=== PATIENT | female | born 1960 | race Caucasian/White ===

== ENCOUNTER → 2017-08-14 16:05 | Outpatient (REF) | payer OTHER, SELFPAY ==
[2017-08-14 21:45] LABS: Amphetamine/Metha Screen,Urine Negative ng/mL (<1000); Barbiturates Screen,Urine Negative ng/mL (<200); Benzodiazepines Screen,Urine Negative ng/mL (200); Cannabinoid Screen,Urine Negative ng/mL (<50); Cocaine Screen,Urine Negative ng/g (<300); Methadone Screen,Urine Positive ng/mL (<300); Opiate Screen,Urine Negative ng/mL (<300); Phencyclidine Screen,Urine Negative ng/mL (<25)
== END ==
LOC: LAB 16:05
PROVIDERS: Visit Provider Nurse Practitioner Family
DX: Z79.899 Other long term (current) drug therapy (principal)
CPT/HCPCS: 80305

== ENCOUNTER → 2017-08-27 14:57 | Outpatient (REF) | payer OTHER, SELFPAY ==
[2017-08-27 19:06] LABS: Basophils % 0.5 % (0.1-2.0); Eosinophils # 0.2 K/mm3 (0.0-0.4); Eosinophils % 2.2 % (0.1-12.0); Hematocrit 35.5 % (37.0-47.0); Hemoglobin 11.8 g/dL (12.2-16.2); Lymphocytes # 2.3 K/mm3 (0.7-4.5); Lymphocytes % 34.9 K/mm3 (10-50); Mean Corpuscular HGB Conc 33.3 g/dL (31.8-35.4); Mean Corpuscular Hemoglobin 29.5 pg (27.0-31.2); Mean Corpuscular Volume 88.6 fl (81-99); Mean Platelet Volume 9.2 fl (7.4-10.4); Monocytes # 0.4 K/mm3 (0.1-1.0); Monocytes % 6.1 % (1.7-9.3); Neutrophils # 3.8 K/mm3 (1.8-7.8); Neutrophils % 56.3 % (37.0-80.0); Platelet Count 204 K/mm3 (142-424); Red Blood Count 4.01 M/mm3 (4.20-5.40); Red Cell Distribution Width 13.6 % (11.5-17.5); White Blood Count 6.7 K/mm3 (4.8-10.8)
[2017-08-27 19:19] LABS: Alanine Aminotransferase 22 U/L (12-78); Albumin Level 3.9 gm/dL (3.4-5.0); Albumin/Globulin Ratio 1.1 (1.1-1.8); Alkaline Phosphatase 109 U/L (46-116); Anion Gap 11.4 mEq/L (5-15); Aspartate Amino Transferase 18 U/L (15-37); Bilirubin,Total 0.2 mg/dL (0.2-1.0); Blood Urea Nitrogen 14 mg/dL (7-18); Calcium 9.1 mg/dL (8.5-10.1); Carbon Dioxide 30 mmol/L (21.0-32.0); Chloride 101 mmol/L (98-107); Creatinine,Serum 0.77 mg/dL (0.55-1.02); Estimated Glomerular Filt Rate 77 ml/min (>60); GFR (African American) 93 ML/MIN (>60); Globulin 3.6 gm/dl (1.3-3.2); Glucose 95 mg/dL (74-106); Potassium 4.4 mmoL/L (3.5-5.1); Sodium 138 mmol/L (136-145); Total Protein,Serum 7.5 gm/dL (6.4-8.2)
== END ==
LOC: LAB 14:57
PROVIDERS: Visit Provider Nurse Practitioner Family
DX: Z01.818 Encounter for other preprocedural examination (principal)
CPT/HCPCS: 80053; 85025

== ENCOUNTER → 2018-01-04 10:19 | Outpatient (CLI) | payer OTHER, SELFPAY ==
[2018-01-04 10:45] VITALS: PULSE 72
== END ==
PROVIDERS: PCP Emergency Medicine; Visit Provider Emergency Medicine
DX: R06.02 Shortness of breath (principal)
CPT/HCPCS: 94060; 94640

== ENCOUNTER 2018-05-20 15:52 | Observation (INO) ==
--- NOTE | 2018-05-20 16:23 | Emergency Department Note ---
ED Disposition Condition on Discharge: Fair - Critical Care Critical Care Time: No <Cecy Jones - Last Filed: 05/20/18 19:28> <Luis Chairez - Last Filed: 05/20/18 21:29> Clinical Impression: Chronic back pain, Anemia, Chronic pain syndrome, Opiate withdrawal, Methadone dependence Disposition: Home, Self-Care Attestation: On 05/20/18, the high probability of a clinically significant, sudden or life threatening deterioration of the following system(s) required my full and direct attention, intervention and personal management. The time I documented below is in addition to time spent performing reported procedures but includes the following listed in this critical care notation. Medical Decision Making - Medical Records Medical records reviewed: Yes: I reviewed the patient's medical records. - Alfred Inquiry Pt receiving controlled substance: No Alfred was queried for this patient: No - Lab Data Result diagrams: 05/20/18 16:30 05/20/18 16:30 - ECG Data Tracing #1 ECG initial impression date: 05/20/18 ECG initial impression time: 16:05 <Cecy Jones - Last Filed: 05/20/18 19:28> - Lab Data Result diagrams: 05/20/18 16:30 05/20/18 16:30 <Luis Chairez - Last Filed: 05/20/18 21:29> Vital Signs: 05/20/18 16:29 05/20/18 19:17 05/20/18 19:39 Temperature 98.8 F Temperature Source Oral Pulse Rate Pulse Rate [Left Radial] 66 58 L 61 Respiratory Rate 18 11 L 16 Blood Pressure Blood Pressure [Right Arm] 136/90 79/41 L 89/51 L Blood Pressure Mean [Right Arm] 105 53 63 Blood Pressure Source [Right Arm] Automatic Cuff Blood Pressure Position [Right Arm] Sitting 02 Sat by Pulse Oximetry 98 98 100 Oxygen Delivery Method Room Air Room Air Room Air 05/20/18 20:12 05/20/18 20:42 05/20/18 20:54 Temperature 98.5 F Temperature Source Oral Pulse Rate 83 Pulse Rate [Left Radial] 95 H 89 Respiratory Rate 17 20 17 Blood Pressure 145/98 H Blood Pressure [Right Arm] 155/99 H 135/98 H Blood Pressure Mean [Right Arm] 117 110 Blood Pressure Source [Right Arm] Automatic Cuff Automatic Cuff Blood Pressure Position [Right Arm] Standing Sitting 02 Sat by Pulse Oximetry 99 97 Oxygen Delivery Method Room Air Room Air Room Air 05/20/18 21:19 Temperature Temperature Source Pulse Rate Pulse Rate [Left Radial] 81 Respiratory Rate 15 Blood Pressure Blood Pressure [Right Arm] 126/79 Blood Pressure Mean [Right Arm] 94 Blood Pressure Source [Right Arm] Automatic Cuff Blood Pressure Position [Right Arm] Sitting 02 Sat by Pulse Oximetry 99 Oxygen Delivery Method Room Air - Lab Data Lab Results 05/20/18 16:30: WBC 6.8, RBC 3.82 L, Hgb 11.1 L, Hct 34.9 L, MCV 91.1, MCH 29.0, MCHC 31.8, RDW 14.5, Plt Count 265, MPV 7.0 L, Neut % (Auto) 56.7, Lymph % (Auto) 33.4, [place] % (Auto) 6.8, Eos % (Auto) 2.6, Baso % (Auto) 0.6, Neut # (Auto) 3.8, Lymph # (Auto) 2.3, [place] # (Auto) 0.5, Eos # (Auto) 0.2, Baso # (Auto) 0.0 05/20/18 16:30: Sodium 139, Potassium 4.0, Chloride 101, Carbon Dioxide 30, Anion Gap 12.0, BUN 9, Creatinine 0.95, Estimated Creat Clear 74, Estimated GFR 60, Est GFR ( Amer) 73, Glucose 106, Calcium 8.8, Total Bilirubin 0.3, AST 17, ALT 19, Alkaline Phosphatase 105, Total Creatine Kinase 86, CK-MB (CK-2) 2.5, CK-MB (CK-2) Rel Index 2.9, Troponin I < 0.02, Total Protein 7.4, Albumin 3.4, Globulin 4.0 H, Albumin/Globulin Ratio 0.9 L, Lipase 107, Plasma/Serum Alcohol 0 05/20/18 18:30: Urine Color Yellow, Urine Appearance Clear, Urine pH 6.5, Ur Specific [place] 1.020, Urine Protein Negative, Urine Glucose (UA) Negative, Urine Ketones Negative, Urine Blood Negative, Urine Nitrate Negative, Urine Bilirubin Negative, Urine Urobilinogen 0.2, Ur Leukocyte Esterase Negative, Urine RBC None, Urine WBC Occasional, Ur Squamous Epith Cells 5-10, Urine Bacteria Trace 05/20/18 18:30: Urine Opiates Screen Negative, Urine Methadone Screen Positive H , Ur Barbituates Screen Negative, Ur Phencyclidine Scrn Negative, Ur Amphetamines Screen Negative, U Benzodiazepines Scrn Negative, Urine Cocaine S creen Negative, U Marijuana (THC) Screen Negative Orders (Tests/Meds): ED MEDICATIONS Generic Name Dose Route Start Last Admin Trade Name Freq PRN Reason Stop Dose Admin Albuterol Sulfate puffs 05/20/18 20:13 Proventil-Hfa 90mcg/Puff Inhaler IH 06/19/18 20:12 Q8H PRN shortness of breath Atenolol 25 mg 05/20/18 20:13 Tenormin 25mg Tablet PO 06/19/18 20:12 QAM [facility] Citalopram Hydrobromide 20 mg 05/21/18 09:00 Celexa 20mg Tablet PO 06/20/18 08:59 DAILY [facility] Clonidine HCl 0.2 mg 05/20/18 21:00 Clonidine 0.2mg Tablet PO 06/19/18 20:59 TID [facility] Hydroxyzine Pamoate 25 mg 05/20/18 20:13 Vistaril 25mg Capsule PO 06/19/18 20:12 DAILY PRN itching Lorazepam 0.5 mg 05/20/18 20:13 Ativan 0.5mg Tablet PO 06/19/18 20:12 BID PRN anxiety Miscellaneous 1 unit 05/20/18 20:13 Aerochamber/Optihaler MC 05/20/18 20:14 ONCE ONE Morphine Sulfate 2 mg 05/20/18 20:13 Morphine 2mg/Ml Syringe IV 06/19/18 20:12 Q2HP PRN Severe Pain Non-Formulary Medication 5 mg 05/21/18 09:00 Desloratadine [Desloratadine] PO 06/20/18 08:59 DAILY [facility] Non-Formulary Medication 1 inh 05/20/18 20:13 Fluticasone/Vilanterol [Breo Ellipta 100-25 Mcg Inh] INHALATION 06/19/18 20:12 Q24H JADIEL Non-Formulary Medication 20 mg 05/21/18 09:00 Omeprazole [Omeprazole 20mg Capsule] PO 06/20/18 08:59 DAILY J[facility] Promethazine HCl 12.5 mg 05/20/18 20:13 Phenergan 25mg/Ml 1ml Vial IV 06/19/18 20:12 Q6HP PRN Nausea And Vomiting Sodium Chloride 25 ml 05/20/18 20:13 Sod Chlor 0.9% 25ml Bag IV 05/20/18 20:14 ONCE ONE Discontinued Medications Generic Name Dose Route Start Last Admin Trade Name Freq PRN Reason Stop Dose Admin Sodium Chloride 1,000 mls @ 999 mls/hr 05/20/18 19:30 05/20/18 19:19 Sod Chlor 0.9% 1000ml Bag IV 05/20/18 20:30 999 mls/hr .Q1H1M JADIEL Administration Lorazepam 1 mg 05/20/18 20:46 05/20/18 20:55 Ativan 2mg/Ml Vial IM 05/20/18 20:47 1 mg ONCE ONE Administration Morphine Sulfate 2 mg 05/20/18 19:30 05/20/18 19:36 Morphine 2mg/Ml Syringe IV 05/20/18 19:31 2 mg ONCE ONE Administration Morphine Sulfate 2 mg 05/20/18 20:10 05/20/18 20:12 Morphine 2mg/Ml Syringe IV 05/20/18 20:11 2 mg ONCE ONE Administration Naloxone HCl 2 mg 05/20/18 19:17 05/20/18 19:19 Narcan 2mg/2ml Syringe IV 05/20/18 19:18 2 mg ONCE ONE Administration Ondansetron HCl 4 mg 05/20/18 20:10 05/20/18 20:12 Zofran 4mg/2ml Vial IV 05/20/18 20:11 4 mg ONCE ONE Administration Promethazine HCl 12.5 mg 05/20/18 20:10 05/20/18 20:12 Phenergan 25mg/Ml 1ml Vial IV 05/20/18 20:11 12.5 mg ONCE ONE Administration Sodium Chloride 25 ml 05/20/18 20:10 05/20/18 20:11 Sod Chlor 0.9% 25ml Bag IV 05/20/18 20:11 25 ml ONCE ONE Administration ORDERS Category Date Time Status Basic Metabolic Panel AMLAB Lab 05/21/18 06:00 Ordered Complete Blood Count Auto Diff AMLAB Lab 05/21/18 06:00 Ordered Magnesium AMLAB Lab 05/21/18 06:00 Ordered Troponin I Q6H Lab 05/20/18 22:45 Ordered Troponin I Q6H Lab 05/21/18 04:45 Ordered - ECG Data Tracing #1 Normal sinus rhythm 63/min baseline artifact no acute findings. (Cecy Jones) Medical Decision Narrative: Patient underwent negative labs except for chronic anemia. Cardiac enzymes are negative lipase was within normal limits. Her urine drug screen was positive for methadone but she displayed symptoms of narcotic overdose that is when she was given Narcan by nursing staff to protect her breathing but shortly after she developed opiate withdrawal symptoms in the form of a runny nose, tachycardia irritability and worse back pain. I spoke with Dr. 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 Arizmendi agreed to admit her for opiate withdrawal treatment. Prior to admission to the floor the patient received morphine with improvement of her symptoms. (Cecy Jones) Back Pain HPI - General Mode of Arrival: Ambulatory Source of Information: Patient - History of Present Illness MD Complaint: back pain Onset (ago): week(s) Duration: constant Similar Symptoms Previously: Yes Location: lumbar spine Severity: moderate Quality: dull Radiation: abdomen Relieving factors: sitting upright Exacerbating factors: walking Context: while lifting Associated symptoms: denies other symptoms Pertinent Issues R/T Back Pain: Back Surgery <Cecy Jones - Last Filed: 05/20/18 19:28> <Luis Chairez - Last Filed: 05/20/18 21:29> - General Stated Complaint: To be ck out Time Seen by Provider: 05/20/18 16:20 - History of Present Illness HPI Narrative: 57 years old white female with history of back surgeries and chronic back pain. She was seen by her primary care physician 4 days ago and she was advised to go to the ER so she presented to the ED today with her bag ready for admission. She is complaining of bilateral flank pain that is worse with walking and lifting. He denies having chest pain shortness of breath palpitation hemoptysis hematemesis coffee-ground emesis melanotic stool or bleeding per rectum. Denies having radicular pain to the lower extremity there is no weakness there is no numbness there is no loss of urine or bowel control. (Cecy Jones) - Related Data Home Medications Medication Instructions Recorded Confirmed baclofen 20 mg tablet 20 mg PO Q8H 08/13/17 05/20/18 Amitriptyline HCl [Elavil 50mg 50 mg PO QHS 05/20/18 05/20/18 tablet] Atenolol [Atenolol 25mg Tab] 25 mg PO QAM 05/20/18 05/20/18 Citalopram Hydrobromide 20 mg PO DAILY 05/20/18 05/20/18 [Citalopram HBr] Desloratadine 5 mg PO DAILY 05/20/18 05/20/18 Fluticasone/Vilanterol [Breo 1 inh INHALATION Q24H 05/20/18 05/20/18 Ellipta] Gabapentin [Gabapentin 400mg Cap] 400 mg PO TID 05/20/18 05/20/18 Omeprazole [Omeprazole 20mg 20 mg PO DAILY 05/20/18 05/20/18 Capsule] cloNIDine HCl [Catapres] 0.2 mg PO TID 05/20/18 05/20/18 Previous Rx's Medication Instructions Recorded albuterol sulfate HFA 90 2 puff INHALATION Q8H PRN #8.5 g 01/25/18 mcg/actuation aerosol inhaler promethazine 25 mg tablet 25 mg PO Q6H PRN #5 tab 02/07/18 hydroxyzine pamoate 25 mg capsule 25 mg PO DAILY PRN #90 cap 05/16/18 lorazepam 0.5 mg tablet 0.5 mg PO BID PRN #30 tab 05/16/18 Allergies Allergy/AdvReac Type Severity Reaction Status Date / Time acetaminophen [From Tylenol] Allergy Mild Verified 05/16/18 15:25 codeine Allergy Mild Verified 05/16/18 15:25 ketorolac [From Toradol] Allergy Mild Verified 05/16/18 15:25 HMH History Medical History: Reports:: Anxiety, Depression, Hypertension Laterality Cases: Right: Total Hip Replacement Other Surgeries: Yes: Tubal Ligation, Other Amputation: No Fractures: No - Social History Smoking Status: Current every day smoker Tobacco Type: cigarettes # Packs/Day (cigarettes): 2 Alcohol Intake: never Substance Use Type: denies use - Psychiatric History Pschychiatric History:: Reports:: Anxiety, Depression Family Hx:: Cancer, Hypertension <Cecy Jones - Last Filed: 05/20/18 19:28> ROS Obtained: Yes All systems reviewed & no additional complaints <Cecy Jones - Last Filed: 05/20/18 19:28> Physical Exam - General General appearance: alert, in no apparent distress - Head Head exam: atraumatic, normocephalic, normal inspection - Eye Eye exam: Present: normal appearance, PERRL, EOMI. Absent: scleral icterus, nystagmus - ENT ENT exam: Present: normal exam, normal oropharynx, mucous membranes moist, TM's normal bilaterally, normal external ear exam - Neck Neck exam: Present: normal inspection, full ROM, trachea midline. Absent: tenderness, meningismus, lymphadenopathy - Chest Chest inspection: Present: normal inspection, symmetric chest wall rise. Absent: tenderness - Respiratory Respiratory exam: Present: normal lung sounds bilaterally. Absent: respiratory distress - Cardiovascular Cardiovascular exam: Present: regular rate, normal rhythm, normal heart sounds. Absent: JVD - Abdominal Exam Abdominal exam: Present: soft, normal bowel sounds. Absent: distention, tende rness, guarding, rebound, rigidity - External exam: Present: normal external exam - Extremities Exam Extremities exam: Present: normal inspection, full ROM, normal capillary refill. Absent: calf tenderness - Back Exam Back exam: Present: normal inspection, CVA tenderness (R), CVA tenderness (L), paraspinal tenderness. Absent: tenderness, vertebral tenderness - Neurological Exam Neurological exam: Present: alert, oriented X3, CN II-XII intact, motor sensory deficit, reflexes normal - Psychiatric Psychiatric exam: Present: normal affect, normal mood - Skin Skin exam: Present: warm, dry, intact, normal color - Lymphatic Lymphatic Findings: no adenopathy <[email or web address] - Last Filed: 05/20/18 19:28>
[2018-05-20 16:36] LABS: Basophils % 0.6 % (0.1-2.0); Eosinophils # 0.2 K/mm3 (0.0-0.4); Eosinophils % 2.6 % (0.1-12.0); Hematocrit 34.9 % (37.0-47.0); Hemoglobin 11.1 g/dL (12.2-16.2); Lymphocytes # 2.3 K/mm3 (0.7-4.5); Lymphocytes % 33.4 % (10-50); Mean Corpuscular HGB Conc 31.8 g/dL (31.8-35.4); Mean Corpuscular Volume 91.1 fl (81-99); Monocytes # 0.5 K/mm3 (0.1-1.0); Monocytes % 6.8 % (1.7-9.3); Neutrophils # 3.8 K/mm3 (1.8-7.8); Neutrophils % 56.7 % (37.0-80.0); Platelet Count 265 K/mm3 (142-424); Red Blood Count 3.82 M/mm3 (4.20-5.40); Red Cell Distribution Width 14.5 % (11.5-17.5); White Blood Count 6.8 K/mm3 (4.8-10.8)
[2018-05-20 17:06] LABS: Alanine Aminotransferase 19 U/L (12-78); Albumin Level 3.4 gm/dL (3.4-5.0); Albumin/Globulin Ratio 0.9 (1.1-1.8); Alkaline Phosphatase 105 U/L (46-116); Aspartate Amino Transferase 17 U/L (15-37); Bilirubin,Total 0.3 mg/dL (0.2-1.0); Blood Urea Nitrogen 9 mg/dL (7-18); Calcium 8.8 mg/dL (8.5-10.1); Carbon Dioxide 30 mmol/L (21.0-32.0); Chloride 101 mmol/L (98-107); Creatine Kinase 86 U/L (26-192); Glucose 106 mg/dL (74-106); Lipase 107 u/L (73-393); Sodium 139 mmol/L (136-145); Total Protein,Serum 7.4 gm/dL (6.4-8.2)
[2018-05-20 17:07] LABS: Ethyl Alcohol 0 mg/dL (0-99)
[2018-05-20 18:35] LABS: Microscopic, Urine URINE MICROSCOPIC (MICROSCOPIC)
[2018-05-20 18:42] LABS: Appearance,Urine CLEAR (Clear); Blood, Urine Negative (Negative); Color,Urine YELLOW (Yellow); Glucose,Urine (UA) Negative (Negative); Ketones,Urine Negative (Negative); Leukocyte Esterase,Urine Negative (Negative); PH,Urine 6.5 (5.0-8.5); Protein,Urine Negative (Negative); Urobilinogen,Urine 0.2 EU/dl (0.2)
[2018-05-20 18:45] LABS: Amphetamine/Metha Screen,Urine Negative ng/mL (<1000); Barbiturates Screen,Urine Negative ng/mL (<200); Benzodiazepines Screen,Urine Negative ng/mL (<200); Cannabinoid Screen,Urine Negative ng/mL (<50); Cocaine Screen,Urine Negative ng/mL (<300); Methadone Screen,Urine Positive ng/mL (<300); Opiate Screen,Urine Negative ng/mL (<300); Phencyclidine Screen,Urine Negative ng/mL (<25)
[2018-05-20 18:46] LABS: Bilirubin,Urine Negative (Negative)
[2018-05-20 18:58] LABS: WBC,Urine Occasional #/hpf (0-3)
[2018-05-20 18:59] LABS: Bacteria,Urine Trace /lpf
[2018-05-21 05:18] LABS: Calcium 8.6 mg/dL (8.5-10.1)
[2018-05-21 05:45] LABS: Basophils % 0.6 % (0.1-2.0); Eosinophils # 0.1 K/mm3 (0.0-0.4); Eosinophils % 1.7 % (0.1-12.0); Hemoglobin 11.2 g/dL (12.2-16.2); Lymphocytes # 2.2 K/mm3 (0.7-4.5); Lymphocytes % 34.7 % (10-50); Mean Corpuscular HGB Conc 32.1 g/dL (31.8-35.4); Mean Corpuscular Hemoglobin 29.5 pg (27.0-31.2); Mean Corpuscular Volume 92.1 fl (81-99); Mean Platelet Volume 7.3 fl (7.4-10.4); Monocytes # 0.4 K/mm3 (0.1-1.0); Monocytes % 5.9 % (1.7-9.3); Neutrophils # 3.6 K/mm3 (1.8-7.8); Neutrophils % 57.2 % (37.0-80.0); Platelet Count 247 K/mm3 (142-424); Red Blood Count 3.81 M/mm3 (4.20-5.40); Red Cell Distribution Width 14.4 % (11.5-17.5); White Blood Count 6.4 K/mm3 (4.8-10.8)
--- NOTE | 2018-05-21 07:37 | Pharmacy Consult Notes ---
[facility] Pharmacy VTE Monitoring - Patient Demographics Admission date: 05/20/18 Report Date: 05/21/18 Time: 07:37 Allergies/Adverse Reactions: Patient Allergies acetaminophen [From Tylenol] Allergy (Mild, Verified 05/16/18 15:25) codeine Allergy (Mild, Verified 05/16/18 15:25) ketorolac [From Toradol] Allergy (Mild, Verified 05/16/18 15:25) Height: 1.68 m Weight: 72.575 kg Patient Problems: Current Active Problems (This Medical Record has been edited. Action required.) Chronic back pain (Acute) Anemia (Acute) Chronic pain syndrome (Acute) Opiate withdrawal (Acute) Methadone dependence (Acute) - VTE Risk Labs: VTE Related Lab Results Hgb 11.2 g/dL (12.2-16.2) L 05/21/18 04:50 Hct 35.0 % (37.0-47.0) L 05/21/18 04:50 Plt Count 247 K/mm3 (142-424) 05/21/18 04:50 BUN 8 mg/dL (7-18) 05/21/18 04:50 Creatinine 0.84 mg/dL (0.55-1.02) 05/21/18 04:50 Estimated Creat Clear 84 mL/min (50-200) 05/21/18 04:50 Was VTE Risk Assessment Performed: Yes VTE Risk Level: Moderate Risk - Prophylaxis VTE Prophylaxis Ordered?: Yes Types of VTE Prophylaxis: TEDS Knee High Location of Applied Device: Bilateral Lower Extremeties - VTE Diagnosis Confirmed Treatment or plan recommended: Continue Current Treatment
--- NOTE | 2018-05-21 09:02 | History & Physical Report ---
*Admission Date: 05/20/18 *Chief complaint: chest pressure *History of present illness: 57 yr old female presents to ed with c/o of chest pressure,soa,and back pain. Pt describes pain to be between shoulders and feeling like a anvil crushing on chest for a few weeks and worse with walking. Pt states progressive soa that comes with this pain. Pt admitted for cardiology consult and work up. [facility] History I have reviewed the patient's past medical history: Yes Medical History: Reports:: Anxiety, Depression, Hypertension Denies:: Diabetes Mellitus Type 1, Diabetes Mellitus Type 2 Other Medical History: Reports: Anemia Laterality Cases: Right: Total Hip Replacement Other Surgeries: Yes: Tubal Ligation, Other Amputation: No Fractures: No - *Social History Smoking Status: Current every day smoker Tobacco Type: cigarettes # Packs/Day (cigarettes): 2 Alcohol Intake: never Substance Use Type: unknown Occupational Status: disabled - Psychiatric History Expresses thoughts of harming self/others: Vague Suicide Plan Description: No Plan Pschychiatric History:: Reports:: Anxiety, Depression *Family Hx:: Cancer, Hypertension Review of Systems - Review of Systems Review of systems:: pertinent systems reviewed and negative unless documented below - Constitutional Denies headache(s) - Eyes Denies change in vision - ENT Denies change in voice - *Cardiovascular Reports chest pain at rest, Reports chest pain with activity, Reports shortness of breath, Reports shortness of breath with activity - *Respiratory Reports shortness of breath - *Gastrointestinal Denies nausea - *Genitourinary Denies abnormal vaginal bleeding - *Musculoskeletal Denies decreased muscle mass - Integumentary/Breasts Denies rash - *Neurologic Reports radiating pain, Denies abnormal movements, Denies dizziness - Psychiatric Denies anxiety - Endocrine Denies flushing - Hematologic/Lymphatic Denies enlarged lymph nodes - Allergic/Immunologic Denies lip swelling Meds Home Medications Medication Instructions Recorded Confirmed Type Amitriptyline HCl [Elavil 50mg 50 mg PO HS 05/20/18 05/21/18 History tablet] Atenolol [Atenolol 25mg Tab] 25 mg PO DAILY 05/20/18 05/21/18 History Citalopram Hydrobromide 20 mg PO DAILY 05/20/18 05/20/18 History [Citalopram HBr] Desloratadine 5 mg PO DAILY 05/20/18 05/20/18 History Fluticasone/Vilanterol [Breo 1 puff INHALATION DAILY 05/20/18 05/21/18 History Ellipta] Gabapentin [Gabapentin 400mg Cap] 400 mg PO TID 05/20/18 05/20/18 History Omeprazole [Omeprazole 20mg 20 mg PO DAILY 05/20/18 05/20/18 History Capsule] cloNIDine HCl [Catapres] 0.2 mg PO TID 05/20/18 05/20/18 History Polyethylene Glycol 3350 17 gm PO DAILY 05/21/18 05/21/18 History Allergies Allergy/AdvReac Type Severity Reaction Status Date / Time acetaminophen [From Tylenol] Allergy Mild Verified 05/16/18 15:25 codeine Allergy Mild Verified 05/16/18 15:25 ketorolac [From Toradol] Allergy Mild Verified 05/16/18 15:25 Exam Vital signs and Labs for Last 24 Hours: Temp Pulse Resp BP Pulse Ox 98.5 F 78 16 104/63 L 97 05/21/18 08:00 05/21/18 08:00 05/21/18 08:00 05/21/18 08:00 05/21/18 08:00 Laboratory Results - last 24 hr 05/20/18 16:30: WBC 6.8, RBC 3.82 L, Hgb 11.1 L, Hct 34.9 L, MCV 91.1, MCH 29.0, MCHC 31.8, RDW 14.5, Plt Count 265, MPV 7.0 L, Neut % (Auto) 56.7, Lymph % (Auto) 33.4, [place] % (Auto) 6.8, Eos % (Auto) 2.6, Baso % (Auto) 0.6, Neut # (Auto) 3.8, Lymph # (Auto) 2.3, [place] # (Auto) 0.5, Eos # (Auto) 0.2, Baso # (Auto) 0.0 05/20/18 16:30: Sodium 139, Potassium 4.0, Chloride 101, Carbon Dioxide 30, Anion Gap 12.0, BUN 9, Creatinine 0.95, Estimated Creat Clear 74, Estimated GFR 60, Est GFR ( Amer) 73, Glucose 106, Calcium 8.8, Total Bilirubin 0.3, AST 17, ALT 19, Alkaline Phosphatase 105, Total Creatine Kinase 86, CK-MB (CK-2) 2.5, CK-MB (CK-2) Rel Index 2.9, Troponin I < 0.02, Total Protein 7.4, Albumin 3.4, Globulin 4.0 H, Albumin/Globulin Ratio 0.9 L, Lipase 107, Plasma/Serum Alcohol 0 05/20/18 18:30: Urine Color Yellow, Urine Appearance Clear, Urine pH 6.5, Ur Specific [place] 1.020, Urine Protein Negative, Urine Glucose (UA) Negative, Urine Ketones Negative, Urine Blood Negative, Urine Nitrate Negative, Urine Bilirubin Negative, Urine Urobilinogen 0.2, Ur Leukocyte Esterase Negative, Urine RBC None, Urine WBC Occasional, Ur Squamous Epith Cells 5-10, Urine Bacteria Trace 05/20/18 18:30: Urine Opiates Screen Negative, Urine Methadone Screen Positive H , Ur Barbituates Screen Negative, Ur Phencyclidine Scrn Negative, Ur Amphetamines Screen Negative, U Benzodiazepines Scrn Negative, Urine Cocaine Scr een Negative, U Marijuana (THC) Screen Negative 05/21/18 00:15: Troponin I < 0.02 05/21/18 04:50: Troponin I < 0.02 05/21/18 04:50: WBC 6.4, RBC 3.81 L, Hgb 11.2 L, Hct 35.0 L, MCV 92.1, MCH 29.5, MCHC 32.1, RDW 14.4, Plt Count 247, MPV 7.3 L, Neut % (Auto) 57.2, Lymph % (Auto) 34.7, [place] % (Auto) 5.9, Eos % (Auto) 1.7, Baso % (Auto) 0.6, Neut # (Auto) 3.6, Lymph # (Auto) 2.2, [place] # (Auto) 0.4, Eos # (Auto) 0.1, Baso # ( Auto) 0.0 05/21/18 04:50: Sodium 140, Potassium 4.0, Chloride 103, Carbon Dioxide 30, Anion Gap 11.0, BUN 8, Creatinine 0.84, Estimated Creat Clear 84, Estimated GFR 70, Est GFR ( Amer) 84, Glucose 94, Calcium 8.6, Magnesium 2.2 I & O for Last 24 hours: Intake & Output 05/18/18 05/19/18 05/20/18 05/21/18 11:59 11:59 11:59 11:59 Intake Total 500 / 500 Balance 500 / 500 Weight 160 lb - Constitutional no acute distress - *Routine HEENT Exam Head: Present: normocephalic Eye: Present: PERRL ENT: Present: mucous membranes moist - *Routine Neck Exam Present: supple. Absent: lymphadenopathy - *Routine Respiratory Exam Present: CTA bilaterally - *Routine Cardiovascular Exam Present: RRR - *Routine Abdominal Exam Present: soft, normoactive bowel sounds. Absent: tenderness - *Routine Extremities Exam Present: full ROM. Absent: cyanosis, clubbing, edema - *Routine Skin Exam Present: warm. Absent: rash - *Routine Neurological Exam Present: alert, oriented X3 Assessment and Plan - Assessment and plan all Dx Assessment and Plan for all problems:: rounded with austen all orders per austen
--- NOTE | 2018-05-21 09:30 | Consult Report ---
History of Present Illness Consult date: 05/21/18 Requesting physician: Karl Arizmendi Consult reason: chest pain Chief complaint: chest pain Additional Medical History:: 1. Tobacco use, continued 2. Hypertension, treated for several years 3. Chronic pain syndrome with history of two upper back and neck surgeries and one right hip surgery 4. Chronic opioid use History of present illness: 57 yr old female presents to ed with c/o of chest pressure,soa,and back pain. Pt describes pain to be between shoulders and feeling like a anvil crushing on chest for a few weeks and worse with walking. Pt states progressive soa that comes with this pain. Pt admitted for cardiology consult and work up. The above per Enrique Schuster APRN for Dr. Arizmendi 57-year-old white female with history of tobacco use and hypertension admitted for progressive exertional shortness of breath and a pulling sensation through the chest and abdomen over the last year. Patient states symptoms have increased recently. She denies any sukumar chest pain but is very concerned that this may be something going on with her heart. She does relate a family history of heart disease in both her mother and father in their late 50s and early 60s. Patient has been smoking most of her life and smokes over a pack a day. She denies any history of diabetes or previous cardiac workup. Troponins have returned normal overnight and EKG is sinus without acute ST segment changes. [facility] History Medical History: Reports:: Anxiety, Depression, Hypertension Denies:: Diabetes Mellitus Type 1, Diabetes Mellitus Type 2 Other Medical History: Reports: Anemia Laterality Cases: Right: Total Hip Replacement Other Surgeries: Yes: Tubal Ligation, Other Amputation: No Fractures: No - *Social History Smoking Status: Current every day smoker Tobacco Type: cigarettes # Packs/Day (cigarettes): 2 Alcohol Intake: never Substance Use Type: unknown Occupational Status: disabled - Psychiatric History Expresses thoughts of harming self/others: Vague Suicide Plan Description: No Plan Pschychiatric History:: Reports:: Anxiety, Depression *Family Hx:: Cancer, Hypertension Meds Home Medications Medication Instructions Recorded Confirmed Type Amitriptyline HCl [Elavil 50mg 50 mg PO HS 05/20/18 05/21/18 History tablet] Atenolol [Atenolol 25mg Tab] 25 mg PO DAILY 05/20/18 05/21/18 History Citalopram Hydrobromide 20 mg PO DAILY 05/20/18 05/20/18 History [Citalopram HBr] Desloratadine 5 mg PO DAILY 05/20/18 05/20/18 History Fluticasone/Vilanterol [Breo 1 puff INHALATION DAILY 05/20/18 05/21/18 History Ellipta] Gabapentin [Gabapentin 400mg Cap] 400 mg PO TID 05/20/18 05/20/18 History Omeprazole [Omeprazole 20mg 20 mg PO DAILY 05/20/18 05/20/18 History Capsule] cloNIDine HCl [Catapres] 0.2 mg PO TID 05/20/18 05/20/18 History Polyethylene Glycol 3350 17 gm PO DAILY 05/21/18 05/21/18 History Allergies Allergy/AdvReac Type Severity Reaction Status Date / Time acetaminophen [From Tylenol] Allergy Mild Verified 05/16/18 15:25 codeine Allergy Mild Verified 05/16/18 15:25 ketorolac [From Toradol] Allergy Mild Verified 05/16/18 15:25 Review of Systems - *Cardiovascular Reports chest pain, Reports shortness of breath with activity - *Respiratory Reports shortness of breath with activity - *Gastrointestinal Denies abdominal pain, Denies loose stools - *Genitourinary Denies blood in urine - *Musculoskeletal Reports back pain, Reports limited joint movement - *Neurologic Reports radiating pain, Denies abnormal movements, Denies dizziness, Denies headache(s) Exam Vital signs and Labs for Last 24 Hours: Temp Pulse Resp BP Pulse Ox 98.5 F 78 16 104/63 L 97 05/21/18 08:00 05/21/18 08:00 05/21/18 08:00 05/21/18 08:00 05/21/18 08:00 Laboratory Results - last 24 hr 05/20/18 16:30: WBC 6.8, RBC 3.82 L, Hgb 11.1 L, Hct 34.9 L, MCV 91.1, MCH 29.0, MCHC 31.8, RDW 14.5, Plt Count 265, MPV 7.0 L, Neut % (Auto) 56.7, Lymph % (Auto) 33.4, [place] % (Auto) 6.8, Eos % (Auto) 2.6, Baso % (Auto) 0.6, Neut # (Auto) 3.8, Lymph # (Auto) 2.3, [place] # (Auto) 0.5, Eos # (Auto) 0.2, Baso # (Auto) 0.0 05/20/18 16:30: Sodium 139, Potassium 4.0, Chloride 101, Carbon Dioxide 30, Anion Gap 12.0, BUN 9, Creatinine 0.95, Estimated Creat Clear 74, Estimated GFR 60, Est GFR ( Amer) 73, Glucose 106, Calcium 8.8, Total Bilirubin 0.3, AST 17, ALT 19, Alkaline Phosphatase 105, Total Creatine Kinase 86, CK-MB (CK-2) 2.5, CK-MB (CK-2) Rel Index 2.9, Troponin I < 0.02, Total Protein 7.4, Albumin 3.4, Globulin 4.0 H, Albumin/Globulin Ratio 0.9 L, Lipase 107, Plasma/Serum Alcohol 0 05/20/18 18:30: Urine Color Yellow, Urine Appearance Clear, Urine pH 6.5, Ur Specific [place] 1.020, Urine Protein Negative, Urine Glucose (UA) Negative, Urine Ketones Negative, Urine Blood Negative, Urine Nitrate Negative, Urine Bilirubin Negative, Urine Urobilinogen 0.2, Ur Leukocyte Esterase Negative, Urine RBC None, Urine WBC Occasional, Ur Squamous Epith Cells 5-10, Urine Bacteria Trace 05/20/18 18:30: Urine Opiates Screen Negative, Urine Methadone Screen Positive H , Ur Barbituates Screen Negative, Ur Phencyclidine Scrn Negative, Ur Amphetamines Screen Negative, U Benzodiazepines Scrn Negative, Urine Cocaine Screen Negative, U Marijuana (THC) Screen Negative 05/21/18 00:15: Troponin I < 0.02 05/21/18 04:50: Troponin I < 0.02 05/21/18 04:50: WBC 6.4, RBC 3.81 L, Hgb 11.2 L, Hct 35.0 L, MCV 92.1, MCH 29.5, MCHC 32.1, RDW 14.4, Plt Count 247, MPV 7.3 L, Neut % (Auto) 57.2, Lymph % (Auto) 34.7, [place] % (Auto) 5.9, Eos % (Auto) 1.7, Baso % (Auto) 0.6, Neut # (Auto) 3.6, Lymph # (Auto) 2.2, [place] # (Auto) 0.4, Eos # (Auto) 0.1, Baso # (Auto) 0.0 05/21/18 04:50: Sodium 140, Potassium 4.0, Chloride 103, Carbon Dioxide 30, Anion Gap 11.0, BUN 8, Creatinine 0.84, Estimated Creat Clear 84, Estimated GFR 70, Est GFR ( Amer) 84, Glucose 94, Calcium 8.6, Magnesium 2.2 I & O for Last 24 hours: Intake & Output 05/18/18 05/19/18 05/20/18 05/21/18 11:59 11:59 11:59 11:59 Intake Total 500 / 500 Balance 500 / 500 Weight 160 lb - *Routine Neck Exam Present: supple. Absent: JVD, carotid bruit - *Routine Respiratory Exam Present: CTA bilaterally. Absent: accessory muscle use, rales, rhonchi, wheezes - *Routine Cardiovascular Exam Present: RRR. Absent: murmur, gallop, rubs - *Routine Abdominal Exam Present: soft. Absent: tenderness, distended, guarding - *Routine Extremities Exam Present: edema. Absent: calf tenderness - *Routine Neurological Exam Present: alert, oriented X3, moving all extremities Assessment and Plan (1) Chest pain Current visit: Yes Status: Acute Category: Medical Code(s): R07.9 - Chest pain, unspecified (2) Tobacco use Current visit: Yes Status: Acute Category: Medical Code(s): Z72.0 - Tobacco use (3) Chronic back pain Current visit: Yes Status: Acute Category: Medical Code(s): M54.9 - Dorsalgia, unspecified; G89.29 - Other chronic pain (4) Hypertension Current visit: No Status: Chronic Category: Medical Code(s): I10 - Essential (primary) hypertension - Assessment and plan all Dx Assessment and Plan for all problems:: 1. ANNETTE score of 2 (chest pain, risk factors). Will recommend proceeding with adenosine myoview due to normal troponins and EKG. 2. Echo to assess LV size, function and valve status. 3. Further recommendations to follow.
--- NOTE | 2018-05-21 21:40 | Cardiology Report ---
PROCEDURE: 2-D M-mode and color Doppler study INDICATIONS FOR THE TEST: Chest pain COPD Heart Murmur Tobacco Smoking+ Palpitations Fatigue Syncope Edema Hypertension+Diabetes Mellitus Rheumatic Fever SOB+COTTON Obesity Hyperlipidemia Family History HD Additional History OPIATE WITHDRAW, UNCOOPERATIVE, ATTEMPTED B/S. HEIGHT: 66 WEIGHT:160 GENDER: Female B/P:104/63 2-D/M-MODE INTERPRETATION: 2-D MEASUREMENTS OBSERVED VALUES IN CMS Right Ventricular Dimension (RVDd) 1.9 Interventricular Septum (Thickness)(IVsd) 1.2 Left Ventricular Internal Dimensions(LVIDd) 5.7 Left Ventricular Posterior Wall (Thickness)(LVPWd) 0.8 Aortic Root 3.3 Aortic Cusp Separation 2.0 Left Atrial Dimensions (LAD) 4.0 2D 1. Left atrium is mildly enlarged, left ventricle is normal size, mild concentric left ventricular hypertrophy, visually estimated ejection fraction 55% with no regional wall motion abnormality. 2. The right atrium and right ventricle are normal size and contractility. 3. The aortic valve is minimally thickened and fibrosed. 4. The mitral and tricuspid valvular grossly normal. 5. The pulmonic valve is poorly visualized. 6. No significant pericardial effusion noted. DOPPLER INTERROGATION: Doppler interrogation of the aortic, mitral and tricuspid valvular presence of mild mitral and tricuspid regurgitation, tricuspid regurgitation jet velocity is inadequate for calculation of the right ventricular systolic pressure, grade 1 diastolic dysfunction seen with tissue Doppler evidence of raised left atrial pressure. CONCLUSION: 1. Mildly enlarged left atrium, normal left ventricular size, mild concentric left ventricular hypertrophy, visually estimated ejection fraction 55 with no regional wall motion abnormality, grade 1 diastolic dysfunction seen with tissue Doppler evidence of raised left atrial pressure. 2. Mild mitral and tricuspid regurgitation 3. Agitated saline contrast study fails to identify intracardiac shunt.
--- NOTE | 2018-05-22 11:42 | Progress Note ---
Internal Medicine - PN: Subj Interval history: card iac cath today - will see pt after cath- saw pt and doing ok Exam Vital signs and Labs for Last 24 Hours: Temp Pulse Resp BP Pulse Ox 97.8 F 59 L 18 126/79 96 05/22/18 07:20 05/22/18 11:30 05/22/18 11:30 05/22/18 11:30 05/22/18 11:30 Laboratory Results - last 24 hr 05/21/18 17:10: POC Glucose 118 H 05/22/18 06:39: POC Glucose 91 05/22/18 11:16: Activated Clotting Time 248 H* I & O for Last 24 hours: Intake & Output 05/19/18 05/20/18 05/21/18 05/22/18 11:59 11:59 11:59 11:59 Intake Total 500 / 500 960 / 960 Balance 500 / 500 960 / 960 Weight 160 lb - Constitutional no acute distress - *Routine HEENT Exam Head: Present: normocephalic Eye: Present: EOMI, PERRL ENT: Present: mucous membranes dry - *Routine Neck Exam Present: supple - *Routine Respiratory Exam Present: CTA bilaterally. Absent: respiratory distress - *Routine Cardiovascular Exam Present: RRR, murmur - *Routine Abdominal Exam Present: soft - *Routine Extremities Exam Absent: calf tenderness - *Routine Skin Exam Present: intact - *Routine Neurological Exam Present: alert, oriented X3, CN II-XII intact - Routine Psychiatric Exam Present: normal affect Assessment and Plan (1) Chest pain Current visit: Yes Status: Acute Category: Medical Code(s): R07.9 - Chest pain, unspecified (2) Tobacco use Current visit: Yes Status: Acute Category: Medical Code(s): Z72.0 - Tobacco use (3) Chronic back pain Current visit: Yes Status: Acute Category: Medical Code(s): M54.9 - Dorsalgia, unspecified; G89.29 - Other chronic pain (4) Hypertension Current visit: No Status: Chronic Category: Medical Code(s): I10 - Essential (primary) hypertension (5) CAD (coronary artery disease) Current visit: Yes Status: Acute Qualifiers: Coronary Disease-Associated Artery/Lesion type: due to lipid rich plaque Qualified Code(s): I25.10 - Atherosclerotic heart disease of [place] coronary artery without angina pectoris; I25.83 - Coronary atherosclerosis due to lipid rich plaque Category: Medical Code(s): I25.10 - Atherosclerotic heart disease of [place] coronary artery without angina pectoris (6) Diastolic dysfunction without heart failure Current visit: Yes Status: Acute Category: Medical Code(s): I51.89 - Other ill-defined heart diseases
--- NOTE | 2018-05-22 11:54 | Progress Note ---
Subjective Date: 05/22/18 Time: 11:51 Principal diagnosis: chest pain Interval history: Patient's stress test noted to be abnormal in the apical and anterior wall areas with normal ejection fraction. Results were reviewed with patient with recommendation for left heart catheterization. The risks, benefits and procedure explained and all questions were answered. Patient agreed to the procedure. She did undergo the procedure requiring coronary stenting to the mid LAD which corresponded to the abnormal nuclear stress test. Due to mildly elevated left ventricular end-diastolic pressure recommendation for low-dose diuretic made. Exam Vital signs and Labs for Last 24 Hours: Temp Pulse Resp BP Pulse Ox 97.8 F 59 L 18 126/79 96 05/22/18 07:20 05/22/18 11:30 05/22/18 11:30 05/22/18 11:30 05/22/18 11:30 Laboratory Results - last 24 hr 05/21/18 17:10: POC Glucose 118 H 05/22/18 06:39: POC Glucose 91 05/22/18 11:16: Activated Clotting Time 248 H* I & O for Last 24 hours: Intake & Output 05/19/18 05/20/18 05/21/18 05/22/18 11:59 11:59 11:59 11:59 Intake Total 500 / 500 960 / 960 Balance 500 / 500 960 / 960 Weight 160 lb - *Routine Respiratory Exam Present: CTA bilaterally. Absent: accessory muscle use, rales, rhonchi, wheezes - *Routine Cardiovascular Exam Present: RRR. Absent: murmur, gallop, rubs Progress Note: A&P (1) Chest pain Status: Acute Current Visit: Yes (2) Tobacco use Status: Acute Current Visit: Yes (3) Chronic back pain Status: Acute Current Visit: Yes (4) Hypertension Status: Chronic Current Visit: No (5) Coronary artery disease Status: Acute Current Visit: Yes (6) Stented coronary artery Status: Acute Current Visit: Yes (7) Diastolic dysfunction Status: Acute Current Visit: Yes Assessment and Plan for All Diagnoses:: Patient could be discharged home later today with follow-up in our office in 1 week. Recommended medications: Aspirin 81 mg daily Atorvastatin 40 mg daily Brilinta 90 mg twice daily Lisinopril/HCTZ 10/12.5 mg daily Tenormin 25 mg daily
--- NOTE | 2018-05-22 13:25 | Discharge Summary ---
General - General Admission date:: 05/21/18 Discharge date: 05/22/18 HPI HPI: 57 yr old female presents to ed with c/o of chest pressure,soa,and back pain. Pt describes pain to be between shoulders and feeling like a anvil crushing on chest for a few weeks and worse with walking. Pt states progressive soa that comes with this pain. Pt admitted for cardiology consult and work up. Hospital Course Hospital Course: pt with episodes of exertional chest pain and assoc dyspnea - she was seen by card - Tobacco use, continued 2. Hypertension, treated for several years 3. Chronic pain syndrome with history of two upper back and neck surgeries and one right hip surgery 4. Chronic opioid use History of present illness: 57 yr old female presents to ed with c/o of chest pressure,soa,and back pain. Pt describes pain to be between shoulders and feeling like a anvil crushing on chest for a few weeks and worse with walking. Pt states progressive soa that comes with this pain. Pt admitted for cardiology consult and work up. The above per Enrique Schuster APRN for Dr. Arizmendi 57-year-old white female with history of tobacco use and hypertension admitted for progressive exertional shortness of breath and a pulling sensation through the chest and abdomen over the last year. Patient states symptoms have increased recently. She denies any sukumar chest pain but is very concerned that this may be something going on with her heart. She does relate a family history of heart disease in both her mother and father in their late 50s and early 60s. Patient has been smoking most of her life and smokes over a pack a day. She denies any history of diabetes or previous cardiac workup. Troponins have returned normal overnight and EKG is sinus without acute ST segment changes. ANNETTE score of 2 (chest pain, risk factors). Will recommend proceeding with adenosine myoview due to normal troponins and EKG. 2. Echo to assess LV size, function and valve status. 3. Further recommendations to follow. Patient's stress test noted to be abnormal in the apical and anterior wall areas with normal ejection fraction. Results were reviewed with patient with recommendation for left heart catheterization. The risks, benefits and procedure explained and all questions were answered. Patient agreed to the procedure. She did undergo the procedure requiring coronary stenting to the mid LAD which corresponded to the abnormal nuclear stress test. Due to mildly elevated left ventricular end-diastolic pressure recommendation for low-dose diuretic made. he left main artery minimal 2. The left anterior descending artery is proximally normal followed by a mid vessel hazy 50-60% stenosis 3. The circumflex artery nondominant yet still a large system and angiographically normal 4. The right coronary artery is a large dominant vessel which has a proximal 40-50% concentric stenosis 5. The AYALA ventriculogram reveals normal ejection fraction estimated at 60% the mid anterior apical wall is mildly hypokinetic 6. The left ventricular end-diastolic pressure 25 to 30 mmHg IMPRESSION: 1. Hazy moderate stenosis in the mid LAD which corresponds to the abnormal Myoview and is the culprit for patient's acute coronary syndrome and associated symptoms. 2. Successful stenting of the culprit vessel for the acute coronary syndrome, hemodynamically severe disease reduced to 0% with 1 drug-eluting stent 3. Persistent moderate nonflow limiting stenosis in the proximal dominant right coronary artery 4. Normal ejection fraction with mild regional wall motion abnormality 5. Moderate to severely elevated LVEDP consistent with moderate to severe diastolic dysfunction PLAN: 1. Brilinta and aspirin for one year 2. LDL less than 55 3. Avoidance of tobacco products 4. Cardiac rehabilitation 5. Patient would benefit from low dose diuretics in order to decrease LVEDP pt stable after stenting and wishes to go home Objective Vital signs: Temp Pulse Resp BP Pulse Ox 98.2 F 68 20 130/85 97 05/22/18 13:15 05/22/18 13:15 05/22/18 13:15 05/22/18 13:15 05/22/18 13:15 no acute distress - *Routine HEENT Exam Head: Present: normocephalic Eye: Present: EOMI, PERRL ENT: Present: mucous membranes dry - *Routine Neck Exam Present: supple. Absent: JVD - *Routine Respiratory Exam Present: CTA bilaterally - *Routine Cardiovascular Exam Present: RRR, murmur - *Routine Abdominal Exam Present: soft - *Routine Extremities Exam Absent: calf tenderness - *Routine Skin Exam Present: intact - *Routine Neurological Exam Present: alert, oriented X3, CN II-XII intact - Routine Psychiatric Exam Present: normal affect Results Labs on day of discharge: Labs from last 24 hours 11/14/18 11/14/18 11/13/18 11:16 06:39 17:10 Activated Clotting Time 248 H* POC Glucose 91 118 H DS: Diagnosis - Discharge Diagnosis (1) Chest pain Status: Acute (2) Tobacco use Status: Acute (3) Chronic back pain Status: Acute (4) Hypertension Status: Chronic (5) CAD (coronary artery disease) Status: Acute (6) Diastolic dysfunction without heart failure Status: Acute Discharge Plan - Patient Discharge Instructions ACTIVITY: Continue current activity DIET: continue same diet Patient Instructions: DI for Cardiac Catheterization, DI for Surgical Site Infection, DI for Chest Pain - Follow up Plan Disposition: Home, Self-Detention Medications: Home Medications Medication Instructions Recorded Confirmed Type Amitriptyline HCl [Elavil 50mg 50 mg PO HS 05/20/18 05/21/18 History tablet] Atenolol [Atenolol 25mg Tab] 25 mg PO DAILY 05/20/18 05/21/18 History Citalopram Hydrobromide 20 mg PO DAILY 05/20/18 05/20/18 History [Citalopram HBr] Desloratadine 5 mg PO DAILY 05/20/18 05/20/18 History Fluticasone/Vilanterol [Breo 1 puff INHALATION DAILY 05/20/18 05/21/18 History Ellipta] Gabapentin [Gabapentin 400mg Cap] 400 mg PO TID 05/20/18 05/20/18 History Omeprazole [Omeprazole 20mg 20 mg PO DAILY 05/20/18 05/20/18 History Capsule] cloNIDine HCl [Catapres] 0.2 mg PO TID 05/20/18 05/20/18 History Polyethylene Glycol 3350 17 gm PO DAILY 05/21/18 05/21/18 History Methadone HCl 130 mg PO HS 05/22/18 05/22/18 History Prescriptions/Medication Reconciliation: New Aspirin [Aspirin 81mg EC Tab] 81 mg PO DAILY #90 tablet. Atorvastatin Calcium [Lipitor 40mg Tablet] 40 mg PO HS #90 tablet Lisinopril [Zestril 10mg Tab] 10 mg PO DAILY #90 tablet Ticagrelor [Brilinta 90mg Tablet] 90 mg PO BID tablet Continue albuterol sulfate HFA 90 mcg/actuation aerosol inhaler 2 puff INHALATION Q8H PRN #8.5 g PRN Reason: shortness of breath hydroxyzine pamoate 25 mg capsule 25 mg PO DAILY PRN #90 cap PRN Reason: itching lorazepam 0.5 mg tablet 0.5 mg PO BID PRN #30 tab PRN Reason: anxiety Gabapentin [Gabapentin 400mg Cap] 400 mg PO TID Fluticasone/Vilanterol [Breo Ellipta] 1 puff INHALATION DAILY Desloratadine 5 mg PO DAILY cloNIDine HCl [Catapres] 0.2 mg PO TID Citalopram Hydrobromide [Citalopram HBr] 20 mg PO DAILY Atenolol [Atenolol 25mg Tab] 25 mg PO DAILY Amitriptyline HCl [Elavil 50mg tablet] 50 mg PO HS Methadone HCl 130 mg PO HS Omeprazole [Omeprazole 20mg Capsule] 20 mg PO DAILY Polyethylene Glycol 3350 17 gm PO DAILY
== END 2018-05-22 18:27 | disposition home or self-care (01) ==
LOC: 2ND 15:52 → ER 15:52 → 2ND 23:53
PROVIDERS: ADMIT Internal Medicine Adolescent Medicine; ATTEND Emergency Medicine

== ENCOUNTER → 2018-09-24 13:41 | Outpatient (CLI) | payer OTHER, SELFPAY ==
[2018-09-24 14:01] LABS: Amphetamine/Metha Screen,Urine Negative ng/mL (<1000); Barbiturates Screen,Urine Negative ng/mL (<200); Benzodiazepines Screen,Urine Negative ng/mL (<200); Cannabinoid Screen,Urine Negative ng/mL (<50); Cocaine Screen,Urine Negative ng/mL (<300); Methadone Screen,Urine Negative ng/mL (<300); Opiate Screen,Urine Positive ng/mL (<300); Phencyclidine Screen,Urine Negative ng/mL (<25)
== END ==
PROVIDERS: Visit Provider Emergency Medicine
DX: Z79.899 Other long term (current) drug therapy (principal)
CPT/HCPCS: 80305

== ENCOUNTER → 2018-10-16 14:17 | Outpatient (CLI) | payer OTHER, SELFPAY ==
[2018-10-16 14:55] LABS: Amphetamine/Metha Screen,Urine Negative ng/mL (<1000); Barbiturates Screen,Urine Negative ng/mL (<200); Benzodiazepines Screen,Urine Negative ng/mL (<200); Cannabinoid Screen,Urine Negative ng/mL (<50); Cocaine Screen,Urine Negative ng/mL (<300); Methadone Screen,Urine Negative ng/mL (<300); Opiate Screen,Urine Negative ng/mL (<300); Phencyclidine Screen,Urine Negative ng/mL (<25)
[2018-10-21 18:07] LABS: Alprazolam Negative (Cutoff=100); Benzodiazepines Positive ng/mL (Cutoff=100); Clonazepam Negative (Cutoff=100); Flurazepam Negative (Cutoff=100); Lorazepam Positive (.); Midazolam Negative (Cutoff=100); Temazepam Negative (Cutoff=100); Triazolam Negative (Cutoff=100)
== END ==
PROVIDERS: Visit Provider Emergency Medicine
DX: F41.9 Anxiety disorder, unspecified (principal); Z79.899 Other long term (current) drug therapy
CPT/HCPCS: 80305; 80346

== ENCOUNTER → 2019-01-07 17:12 | Outpatient (CLI) | payer OTHER, SELFPAY ==
[2019-01-07 18:21] LABS: Amphetamine/Metha Screen,Urine Negative ng/mL (<1000); Barbiturates Screen,Urine Negative ng/mL (<200); Benzodiazepines Screen,Urine Positive ng/mL (<200); Cannabinoid Screen,Urine Negative ng/mL (<50); Cocaine Screen,Urine Negative ng/mL (<300); Methadone Screen,Urine Positive ng/mL (<300); Opiate Screen,Urine Negative ng/mL (<300); Phencyclidine Screen,Urine Negative ng/mL (<25)
== END ==
PROVIDERS: Visit Provider Emergency Medicine
DX: Z79.899 Other long term (current) drug therapy (principal)
CPT/HCPCS: 80305

== ENCOUNTER → 2019-06-30 13:32 | Outpatient (CLI) | payer OTHER, SELFPAY ==
[2019-06-30 14:44] LABS: Amphetamine/Metha Screen,Urine Negative ng/mL (<1000); Barbiturates Screen,Urine Negative ng/mL (<200); Benzodiazepines Screen,Urine Positive ng/mL (<200); Cannabinoid Screen,Urine Positive ng/mL (<50); Cocaine Screen,Urine Negative ng/mL (<300); Methadone Screen,Urine Negative ng/mL (<300); Opiate Screen,Urine Negative ng/mL (<300); Phencyclidine Screen,Urine Negative ng/mL (<25)
== END ==
PROVIDERS: Visit Provider Emergency Medicine
DX: Z79.899 Other long term (current) drug therapy (principal)
CPT/HCPCS: 80305

== ENCOUNTER → 2019-07-29 11:27 | Outpatient (CLI) | payer BC, SELFPAY ==
--- NOTE | 2019-07-29 11:37 | XR_ITS ---
PROCEDURE: XR LUMBAR SPINE 2-3V CLINICAL INDICATION: back pain COMPARISON: No exams were available for comparison FINDINGS: There is compression deformity of T12 with loss of 1/2 to 2/3 vertebral body height without retropulsed bone or posterior element disruption. The lumbar vertebrae are normal height. There is perhaps 2 millimeters anterior subluxation of L4 on L5. There is degenerative disc disease with loss of disc space heights L2-3 L3-4 L4-5. Hypertrophic facet disease is seen bilaterally L3-4 through L5-S1. There is mild levoscoliosis. Incidental note of total right hip arthroplasty IMPRESSION: Indeterminate age compression deformity of T12. No acute fracture in the lumbar spine with degenerative disc and facet disease as described. Dictated by: Daniel Eugene 07/29/2019 13:18 Electronically signed by Daniel Eugene in [facility] 07/29/2019 13:18
--- NOTE | 2019-07-29 11:37 | XR_ITS ---
PROCEDURE: XR CERVICAL SPINE 2V CLINICAL INDICATION: neck pain COMPARISON: No exams were available for comparison FINDINGS: There has been anterior discectomy and fusion at from C4-C7. Anterior metallic fixation plate is noted with reduction screws seen within the C4-C5 and C7 vertebrae. Bone graft fragments are noted. Additionally there are posterior metal reduction rods with bi pedicular screws extending from C5 to T5. There is moderate reversal of the normal lordosis. There is approximately 5 millimeters anterior subluxation of C2 on C3 in 6.5 millimeters anterior subluxation C3 on C4. There is no other malalignment. There is mild spurring impingement of the bilateral C3-4 neural foramina. Facet hypertrophy is noted at multiple levels. There is no acute fracture IMPRESSION: No acute fracture. Postsurgical changes as described. 5 millimeters anterior subluxation C2 on C3 and 6.5 millimeters anterior subluxation C3 on C4. Flexion and extension views could further assess for ligamentous instability Dictated by: Daniel Eugene 07/29/2019 13:30 Electronically signed by Daniel Eugene in [facility] 07/29/2019 13:30
--- NOTE | 2019-07-29 11:37 | XR_ITS ---
PROCEDURE: XR THORACIC SPINE 2V CLINICAL INDICATION: back pain COMPARISON: No exams were available for comparison FINDINGS: There is an indeterminate age compression deformity of T12 with loss of 1/2 to 2/3 anterior vertebral body height. No retropulsed bone or significant posterior element disruption is apparent. The remaining vertebrae appear of normal height. There is no malalignment. Multilevel degenerative disc disease is seen throughout the thoracic spine. Metallic reduction rods are seen extending from the lower cervical spine to the upper thoracic spine and in anterior metallic fixation plate with reduction screws is seen in the spine at the cervicothoracic junction. There is S shaped scoliosis of the spine convex to the right in the lower thoracic spine and convex to the left in the upper lumbar spine. IMPRESSION: Compression deformity of T12. Multilevel degenerative disc disease with scoliosis and postsurgical changes.. Dictated by: Daniel Eugene 07/29/2019 13:23 Electronically signed by Daniel Eugene in [facility] 07/29/2019 13:23
== END ==
PROVIDERS: PCP Emergency Medicine; Visit Provider Emergency Medicine
DX: M54.2 Cervicalgia (principal); M54.6 Pain in thoracic spine; M54.5 Low back pain
CPT/HCPCS: 72040; 72070; 72100

== ENCOUNTER → 2019-09-29 16:46 | Outpatient (CLI) | payer BC, SELFPAY ==
[2019-09-29 17:45] LABS: Basophils # 0.1 K/mm3 (0-0.2); Basophils % 0.9 % (0.1-2.0); Eosinophils # 0.2 K/mm3 (0.0-0.4); Eosinophils % 2.7 % (0.1-12.0); Hematocrit 34.6 % (37.0-47.0); Hemoglobin 11.4 g/dL (12.2-16.2); Lymphocytes # 2.4 K/mm3 (0.7-4.5); Lymphocytes % 43.3 % (10-50); Mean Corpuscular HGB Conc 32.8 g/dL (31.8-35.4); Mean Corpuscular Hemoglobin 29.5 pg (27.0-31.2); Mean Corpuscular Volume 89.9 fl (81-99); Mean Platelet Volume 8.8 fl (7.4-10.4); Monocytes # 0.4 K/mm3 (0.1-1.0); Monocytes % 7.1 % (1.7-9.3); Neutrophils # 2.5 K/mm3 (1.8-7.8); Neutrophils % 46.1 % (37.0-80.0); Platelet Count 234 K/mm3 (142-424); Red Blood Count 3.85 M/mm3 (4.20-5.40); Red Cell Distribution Width 15.1 % (11.5-17.5); White Blood Count 5.4 K/mm3 (4.8-10.8)
[2019-09-29 19:07] LABS: Erythrocyte Sedimentation Rate 61 mm/hr (0-30)
[2019-09-29 19:14] LABS: Chloride 103 mmol/L (98-107)
[2019-09-29 19:15] LABS: Potassium 4.6 mmoL/L (3.5-5.1); Sodium 135 mmol/L (136-145)
[2019-09-29 19:17] LABS: Alanine Aminotransferase 13 U/L (12-78); Albumin Level 3.9 g/dl (3.5-5.0); Alkaline Phosphatase 73 U/L (38-126); Anion Gap 8.6 mEq/L (5-15); Aspartate Amino Transferase 25 U/L (14-36); Bilirubin,Total 0.2 mg/dl (0.2-1.3); Blood Urea Nitrogen 18 mg/dl (7-17); Carbon Dioxide 28 mmol/L (22.0-30.0); Estimated Glomerular Filt Rate 57 ml/min (>60); GFR (African American) 68 ML/MIN (>60)
[2019-09-29 19:18] LABS: Albumin/Globulin Ratio 1.5 (1.1-1.8); Calcium 9.6 mg/dl (8.4-10.2); Globulin 2.6 g/dL (1.3-3.2); Glucose 102 mg/dl (74-100); Total Protein,Serum 6.5 g/dl (6.3-8.2)
[2019-09-29 19:25] LABS: Amphetamine/Metha Screen,Urine Negative ng/ml (<1000)
[2019-09-29 19:26] LABS: Barbiturates Screen,Urine Negative ng/ml (<200)
[2019-09-29 19:27] LABS: Benzodiazepines Screen,Urine Positive ng/ml (<200); Cannabinoid Screen,Urine Negative ng/ml (<50)
[2019-09-29 19:28] LABS: Cocaine Screen,Urine Negative ng/ml (<300)
[2019-09-29 19:29] LABS: Methadone Screen,Urine Negative ng/ml (<300); Opiate Screen,Urine Negative ng/ml (<300)
[2019-09-29 19:30] LABS: Phencyclidine Screen,Urine Negative ng/ml (<25)
== END ==
PROVIDERS: Visit Provider Emergency Medicine
DX: E11.9 Type 2 diabetes mellitus without complications (principal); Z79.899 Other long term (current) drug therapy
CPT/HCPCS: 80053; 80305; 85025; 85651

== ENCOUNTER → 2019-10-22 10:43 | Outpatient (CLI) | payer BC, SELFPAY ==
--- NOTE | 2019-10-22 10:49 | XR_ITS ---
PROCEDURE: XR DEXA AXIAL SKELETON CLINICAL HISTORY: back pain COMPARISON: No exams were available for comparison FINDINGS: Radial 33 percent density is 0.583 grams/centimeters sq with a T-score -1.8. Left hip density is 0.7 4 2 grams/centimeters sq with a T-score of -1.6. L1-L4 density is 0.891 grams/centimeters sq with a T-score -1.4 IMPRESSION: Osteopenia with moderate fracture risk. Treatment advised. Suggest follow-up exam in 2 years Dictated by: Yuri Lechuga MD 10/22/2019 22:29 Electronically signed by Yuri Lechuga MD in [place] 10/22/2019 22:29
== END ==
PROVIDERS: PCP Emergency Medicine; Visit Provider Emergency Medicine
DX: M41.52 Other secondary scoliosis, cervical region (principal)
CPT/HCPCS: 77080

== ENCOUNTER → 2019-11-03 09:48 | Outpatient (POV) | payer BC, SELFPAY ==
[2019-11-03 10:03] VITALS: BP 104/58; PULSE 81; RESP 18; TEMP 36.6; O2SAT 99; BMI 20.5
--- NOTE | 2019-11-03 11:15 | HMH.PMCON ---
Assessment and Plan (1) Scoliosis of cervical region due to degenerative disease of spine in adult Current visit: No Status: Chronic Category: Medical Code(s): M41.52 - Other secondary scoliosis, cervical region (2) History of cervical discectomy Current visit: No Status: Chronic Category: Surgical Code(s): Z98.890 - Other specified postprocedural states (3) Chronic back pain Current visit: No Status: Chronic Qualifiers: Back pain location: low back pain Back pain laterality: bilateral Sciatica presence: without sciatica Qualified Code(s): M54.5 - Low back pain; G89.29 - Other chronic pain Category: Medical Code(s): M54.9 - Dorsalgia, unspecified; G89.29 - Other chronic pain (4) Chronic pain syndrome Current visit: No Status: Chronic Category: Medical Code(s): G89.4 - Chronic pain syndrome - Assessment and plan all Dx Assessment and Plan for all problems:: Per our clinic policy this patient is not a narcotic candidate given her high ORT, multiple pain clinic visits, disinterest in interventional means of pain control. I discussed with her that she may speak with her physician in regards to this. I do believe a neurostimulator would benefit her greatly I did give her information in regards to this. She has been instructed to call the office if she like to move forward or discussed this. We specifically discussed risk factors for Covid-19 including age, heart or lung disease, diabetes, immunosuppression and travel. We also discussed that NSAIDs may worsen Covid-19 infection symptoms and that they should not be used to treat Covid-19 symptoms. Patient was also informed that corticosteroids in any form oral or injectable will decrease immune response and may increase risk of Covid-[address] Broussard has reviewed this patient's chart and this note and agrees with plan of care. Patient has been instructed to call the office if they have any issues prior to the next appointment. Dr. Broussard has reviewed this note and agrees with this plan of care. This note was dictated using voice recognition software and may contain errors or omissions HPI - Data of Consult Consult date: 11/03/19 Requesting Physician: Bren Hidalgo APRN Primary Care Provider: Karl Arizmendi MD - Consult Narrative Reason for consult: Back pain History of present illness: Ms. Lkue is a 59 year old female who presents today for consultation in regards to her back pain. Patient has had surgery after falling out of her bed and breaking her neck. Patient has pain at all times. Patient has been seen by multiple clinics including Dr. Nancy Riddle, Dr. Zaidi, and is also been at a Suboxone clinic. At this time I discussed this with the patient injection therapy she is uninterested in this she states that she has had this in previous pain clinics with no success. I discussed a neurostimulator with her however she is adamant that she does not want any other additional surgeries and does not want this. I do believe this would be the best option for her to help control her pain. Patient is not a candidate for a pain pump due to her Suboxone and methadone use. Patient is asking for pain pills today. I discussed with her that she have to talked about this with her primary care physician. She rates her pain a 7 out of 10 today. CC: Bren Hidalgo APRN [facility] History I have reviewed the patient's past medical history: Yes Medical History: Reports:: Anxiety, Coronary Artery Disease, Depression, Hyperlipidemia, Hypertension Denies:: Cancer, Diabetes Mellitus Type 1, Diabetes Mellitus Type 2, Internal Pacemaker, MRSA *Have you ever received a pneumonia vaccine?: Yes *Have you received a flu vaccine this season?: Yes Other Medical History: Reports: Anemia, Arthritis Laterality Cases: Right: Total Hip Replacement Other Surgeries: Yes: Cardiac Catheterization, Cholecystectomy, Colonoscopy, Coronary Stent, Tubal Ligat
== END ==
PROVIDERS: PCP Emergency Medicine; Visit Provider Clinical Nurse Specialist Family Health
DX: M54.12 Radiculopathy, cervical region (principal); Z98.890 Other specified postprocedural states; M54.5 Low back pain; G89.4 Chronic pain syndrome; Z79.899 Other long term (current) drug therapy
CPT/HCPCS: 99202

== ENCOUNTER → 2019-12-09 10:50 | Outpatient (CLI) | payer BC, SELFPAY ==
--- NOTE | 2019-12-09 10:50 | MR_ITS ---
PROCEDURE: MR LUMBAR SPINE WO CON CLINICAL INDICATION: pain Severe low back pain, prior lumbar fracture with surgery COMPARISON: TSW/O MRI-T-SPINE W/O from 04/12/2017 PHOTOGRAPHER LITHOGRAPHIC/O MRI-C-SPINE W/O from 04/12/2017 XR LUMBAR SPINE 2-3V from 07/29/2019 TECHNIQUE: Standard multiplanar multiecho sequences are performed without contrast. 3-D MIP and myelographic images are also rendered and reviewed FINDINGS: There is normal alignment. There is an old T12 compression fracture with loss of height anteriorly of approximately 50 percent with minimal retropulsion of the posterior superior aspect the vertebral body without impingement or canal stenosis. There is some increased T2 signal within the T12 vertebral body however, this fracture was present on 07/29/2019 lumbar spine exam. Spinal cord ends at the L2 level. There is mild lumbar scoliosis convex left T11-T12: Mild degenerative disc disease with chronic compression changes of T12. T12-L1: Unremarkable. L1-L2: Unremarkable. L2-L3: Mild degenerative disc disease with minimal bulging disc along with facet and ligamentum hypertrophy. There is mild right lateral recess narrowing. L3-L4: Mild degenerative disc disease. L4-5: Mild degenerative disc disease with mild anterolisthesis of L4 of 3 mm with bulging disc along with facet and ligamentum hypertrophy with moderate bilateral foraminal narrowing. L5-S1: Mild facet and ligamentum hypertrophy. Incidental note made of small Tarlov cyst. There is a small left renal cyst at 1.5 cm No extruded herniated disc or bony canal stenosis is evident. IMPRESSION: 1. Chronic compression changes of T12. 2. Mild multilevel lumbar spondylosis with degenerative disc disease, bulging disc, facet ligamentum hypertrophy with lateral recess and foraminal narrowing.. Please see above for detailed description at each level. 3. No extruded herniated disc or bony canal stenosis Dictated by: Yuri Lechuga MD 12/10/2019 08:35 Electronically signed by Yuri Lechuga MD in [place] 12/10/2019 08:35
== END ==
PROVIDERS: PCP Emergency Medicine; Visit Provider Emergency Medicine
DX: M54.5 Low back pain (principal)
CPT/HCPCS: 72148; 76376

== ENCOUNTER → 2020-09-20 14:10 | Outpatient (CLI) | payer BC, SELFPAY ==
[2020-09-20 14:29] LABS: Chloride 104 mmol/L (98-107); Sodium 137 mmol/L (136-145)
[2020-09-20 14:30] LABS: Potassium 4.5 mmoL/L (3.5-5.1)
[2020-09-20 14:32] LABS: Alanine Aminotransferase 39 U/L (12-78); Albumin Level 3.7 g/dl (3.5-5.0); Albumin/Globulin Ratio 1.4 (1.1-1.8); Alkaline Phosphatase 65 U/L (38-126); Anion Gap 10.5 mEq/L (5-15); Aspartate Amino Transferase 46 U/L (14-36); Bilirubin,Total 0.5 mg/dl (0.2-1.3); Blood Urea Nitrogen 16 mg/dl (7-17); Carbon Dioxide 27 mmol/L (22.0-30.0); Cholesterol 172 mg/dl (140-200); Estimated Glomerular Filt Rate 102 ml/min (>60); GFR (African American) 123 ML/MIN (>60); Globulin 2.7 g/dL (1.3-3.2); Total Protein,Serum 6.4 g/dl (6.3-8.2); Triglycerides 189 mg/dl (30-150); VLDL Cholesterol 38 mg/dL (0-40)
[2020-09-20 14:33] LABS: Calcium 9.1 mg/dl (8.4-10.2); Glucose 98 mg/dl (74-100); HDL Cholesterol 58 mg/dl (40-60)
[2020-09-20 14:44] LABS: Direct LDL Cholesterol 72.99 mg/dL (100-129)
[2020-09-20 14:46] LABS: 25-OH Vitamin D, Total 14.8 ng/mL (30-100)
[2020-09-20 14:49] LABS: Basophils # 0.1 K/mm3 (0-0.2); Basophils % 0.5 % (0.1-2.0); Eosinophils # 0.2 K/mm3 (0.0-0.4); Eosinophils % 2.5 % (0.1-12.0); Hematocrit 34.5 % (37.0-47.0); Hemoglobin 11.3 g/dL (12.2-16.2); Lymphocytes # 2.4 K/mm3 (0.7-4.5); Lymphocytes % 24.9 % (10-50); Mean Corpuscular HGB Conc 32.9 g/dL (31.8-35.4); Mean Corpuscular Hemoglobin 30.4 pg (27.0-31.2); Mean Corpuscular Volume 92.4 fl (81-99); Mean Platelet Volume 8.8 fl (7.4-10.4); Monocytes # 0.5 K/mm3 (0.1-1.0); Monocytes % 5.5 % (1.7-9.3); Neutrophils # 6.4 K/mm3 (1.8-7.8); Neutrophils % 66.5 % (37.0-80.0); Platelet Count 258 K/mm3 (142-424); Red Blood Count 3.74 M/mm3 (4.20-5.40); Red Cell Distribution Width 14.1 % (11.5-17.5); White Blood Count 9.6 K/mm3 (4.8-10.8)
[2020-09-20 15:03] LABS: Thyroid Stimulating Hormone 3.33 uIU/mL (0.465-4.68)
== END ==
PROVIDERS: Visit Provider Emergency Medicine
DX: D64.9 Anemia, unspecified (principal); I10 Essential (primary) hypertension; E55.9 Vitamin D deficiency, unspecified; Z79.899 Other long term (current) drug therapy
CPT/HCPCS: 80053; 80061; 82306; 84439; 84443; 85025

== ENCOUNTER → 2021-02-14 09:59 | Outpatient (CLI) | payer BC, SELFPAY ==
--- NOTE | 2021-02-14 10:03 | MM_ITS ---
PROCEDURE: MM DIG SCREENING MAMM BI W/CAD Digital Breast Tomosynthesis Included CLINICAL INDICATION: screening COMPARISON: 05/20/2009 TECHNIQUE: Standard CC and MLO images and 3D Tomosynthesis was obtained. R2 CAD reviewed. FINDINGS: Heterogeneous fibroglandular tissue noted. There is a well-circumscribed 18 x 17 x 16 mm mass within the retroareolar region on the right. This does not appear significantly changed. Questionable calcifications in the retroareolar region on the right. Recommend spot compression Mag views straight and straight mL view On the left there is an area of asymmetry in the upper aspect of the left breast probably which may be related to asymmetric fibroglandular tissue. The CC and exaggerated CC views are somewhat limited with limited breast coverage. Suggest spot compression views, rolled CC views, straight mL view and repeat CC marya image or exaggerated CC marya as well as left breast ultrasound.. The patient's chin obscures this region on the CC tomogram images. Benign-appearing calcification noted on the left. IMPRESSION: Incomplete, additional imaging suggested as described above. BI-RAD Category: 0 Need Additional Imaging Evaluation FOLLOW-UP: IMM Immediate Follow-up Recommended (A letter has been sent to the patient regarding results of the study.) Dictated by: Yuri Lechuga MD 03/04/2021 13:49 Yuri Lechuga MD in [place] 03/04/2021 13:49
--- NOTE | 2021-02-14 10:03 | XR_ITS ---
PROCEDURE: XR CHEST 2V CLINICAL HISTORY: exposure to mold COMPARISON: CR XR LUMBAR SPINE 2-3V from 07/29/2019 FINDINGS: The cardiomediastinal silhouette and pulmonary vascularity are within normal limits. Old granulomatous disease. No lobar consolidation or collapse. Thoracic kyphosis with Raymond rods present in the upper thoracic spine. Degenerative changes are present in the thoracic spine. There is 50 percent anterior wedge compression of L1 unchanged from 07/29/2019. Lower thoracic scoliosis convex right IMPRESSION: No acute findings. Dictated by: Yuri Lechuga MD 02/14/2021 10:26 Yuri Lechuga MD in [place] 02/14/2021 10:26
[2021-02-14 12:05] LABS: Basophils # 0.1 K/mm3 (0-0.2); Basophils % 0.9 % (0.1-2.0); Eosinophils # 0.1 K/mm3 (0.0-0.4); Eosinophils % 1.5 % (0.1-12.0); Hematocrit 36.9 % (37.0-47.0); Hemoglobin 12.2 g/dL (12.2-16.2); Lymphocytes # 1.8 K/mm3 (0.7-4.5); Lymphocytes % 26.9 % (10-50); Mean Corpuscular HGB Conc 33.1 g/dL (31.8-35.4); Mean Corpuscular Hemoglobin 30.5 pg (27.0-31.2); Mean Corpuscular Volume 92.1 fl (81-99); Mean Platelet Volume 7.7 fl (7.4-10.4); Monocytes # 0.3 K/mm3 (0.1-1.0); Monocytes % 5.1 % (1.7-9.3); Neutrophils # 4.3 K/mm3 (1.8-7.8); Neutrophils % 65.6 % (37.0-80.0); Platelet Count 267 K/mm3 (142-424); Red Blood Count 4.01 M/mm3 (4.20-5.40); Red Cell Distribution Width 14.7 % (11.5-17.5); White Blood Count 6.6 K/mm3 (4.8-10.8)
[2021-02-14 12:53] LABS: Alanine Aminotransferase 33 U/L (12-78); Albumin Level 4.5 g/dl (3.5-5.0); Albumin/Globulin Ratio 1.6 (1.1-1.8); Alkaline Phosphatase 71 U/L (38-126); Aspartate Amino Transferase 41 U/L (14-36); Bilirubin,Total 0.4 mg/dl (0.2-1.3); Blood Urea Nitrogen 21 mg/dl (7-17); Calcium 9.6 mg/dl (8.4-10.2); Carbon Dioxide 27 mmol/L (22.0-30.0); Chloride 103 mmol/L (98-107); Chol/HDL Ratio 2.3 (1-3.5); Cholesterol 208 mg/dl (140-200); Estimated Glomerular Filt Rate 102 ml/min (>60); GFR (African American) 123 ML/MIN (>60); Globulin 2.8 g/dL (1.3-3.2); Glucose 96 mg/dl (74-100); HDL Cholesterol 90 mg/dl (40-60); Sodium 140 mmol/L (136-145); Total Protein,Serum 7.3 g/dl (6.3-8.2); Triglycerides 95 mg/dl (30-150); VLDL Cholesterol 19 mg/dL (0-40)
[2021-02-14 12:59] LABS: Hemoglobin A1C 5.5 % (4.0-6.0)
[2021-02-14 13:04] LABS: Direct LDL Cholesterol 89.26 mg/dL (100-129)
[2021-02-14 13:13] LABS: 25-OH Vitamin D, Total 71.9 ng/mL (30-100)
[2021-02-14 13:25] LABS: Thyroid Stimulating Hormone 3.97 uIU/mL (0.465-4.68)
[2021-02-14 13:44] LABS: Vitamin B12 950 pg/mL (239-931)
== END ==
PROVIDERS: Physician Assistant; PCP Emergency Medicine; Visit Provider Emergency Medicine
DX: Z12.31 Encounter for screening mammogram for malignant neoplasm of breast (principal); Z01.419 Encounter for gynecological examination (general) (routine) without abnormal findings; Z77.120 Contact with and (suspected) exposure to mold (toxic); M54.5 Low back pain; L03.116 Cellulitis of left lower limb
CPT/HCPCS: 36415; 71046; 77063; 77067; 80053; 80061; 82306; 82607; 83036; 84443; 85025

== ENCOUNTER 2021-11-15 08:01 | Emergency (ER) | payer BC, SELFPAY ==
[2021-11-15 08:02] VITALS: BP 118/75; PULSE 88; RESP 18; TEMP 36.4; O2SAT 98; BMI 21.9
--- NOTE | 2021-11-15 08:06 | PC.NURSE ---
ED MD at
--- NOTE | 2021-11-15 08:14 | HMH.EDGENADL ---
ED Disposition Clinical Impression: Impetigo Disposition: Home, Self-Care Condition on Discharge: Fair Instructions: DI for Impetigo Additional Instructions: You have been evaluated for rash. Please continue taking clindamycin to complete the entire 10 days of the prescription. Use mupirocin 3 times daily for 5 more days. Follow-up with your primary care doctor for wound recheck. Return to the emergency department for any new or worsening symptoms. Prescriptions: Mupirocin [Bactroban 2% Ointment 22gm tube] 1 applicatio TP TID #22 gm Transmission Status: Pending to [facility] Referrals: Karl Arizmendi MD [Primary Care Provider] - Time of Disposition: 09:04 - Critical Care Critical Care Time: No Attestation: On 11/15/21, the high probability of a clinically significant, sudden or life threatening deterioration of the following system(s) required my full and direct attention, intervention and personal management. The time I documented below is in addition to time spent performing reported procedures but includes the following listed in this critical care notation. Medical Decision Making - Medical Records Medical records reviewed: Yes: I reviewed the patient's medical records. - Alfred Inquiry Pt receiving controlled substance: No Vital Signs: 11/15/21 08:02 11/15/21 08:19 11/15/21 08:30 Temperature 97.6 F Temperature Source Oral Pulse Rate 92 H 90 Pulse Rate [Left Radial] 88 Respiratory Rate 18 Blood Pressure 118/75 124/76 Blood Pressure [Right Arm] 118/75 Blood Pressure Mean [Right Arm] 89 Blood Pressure Source Automatic Cuff Automatic Cuff Blood Pressure Source [Right Arm] Automatic Cuff Blood Pressure Position Sitting Sitting Blood Pressure Position [Right Arm] Sitting 02 Sat by Pulse Oximetry 98 97 98 Oxygen Delivery Method Room Air Room Air Room Air Orders (Tests/Meds): ED MEDICATIONS Discontinued Medications Generic Name Dose Route Start Last Admin Trade Name Freq PRN Reason Stop Dose Admin Lidocaine HCl 5 ml 11/15/21 08:34 Lidocaine 1% 10ml Mdv SQ 11/15/21 08:35 ONCE ONE Medical Decision Narrative: In summary this is a 61-year-old female presenting to the emergency department with a rash on the left side of her nose and face, as well as a lesion to her left index finger. Medically stable on arrival. Vital signs within normal limits. No signs of systemic illness like fevers, chills. I anesthetized wound on the right index finger. Debrided. No obvious foreign body. Healthy tissue underneath. Patient's hand placed in a Hibiclens hot water bath. Prescription for clindamycin is for a total of 10 days, 4 more days of therapy. Recommended she continue this medicine as prescribed. Will prescribe more mupirocin for rash on face. Recommended she sterilize and change her glasses, as the rash is in that area. Follow-up with PCP in 24 to 48 hours for symptom recheck. Given return precautions. Stable for discharge. General Adult HPI - General Stated complaint: sores on face, hands, feet Time Seen by Provider: 11/15/21 08:14 Mode of Arrival: Wheelchair Source of Information: Patient Limitations: No Limitations - History of Present Illness HPI narrative: 61-year-old female presenting to the emergency department with a wound on her right hand and rash on her face. Symptoms started about 1 week ago. She believes she got a splinter in her finger in august, at the base of the index finger. It became red, irritated, infected. She now has a scab and swelling. No pain with finger motion. No fevers or chills. She also has a rash on her face. Located on the left side of her nose and forehead. She has been using mupirocin on the area. Has been taking oral clindamycin. No rash in other places. She has a dog and a turtle at home. She does clean the turtles cage with bare hands. On day 6 of antibiotics. No vision changes. No
[2021-11-15 08:19] VITALS: BP 118/75; PULSE 92; O2SAT 97
[2021-11-15 08:30] VITALS: BP 124/76; PULSE 81; PULSE 90; O2SAT 98
--- NOTE | 2021-11-15 08:30 | PC.NURSE ---
ED MD at speaking with patient
--- NOTE | 2021-11-15 08:42 | PC.NURSE ---
patient ambulatory to restroom with help of assistance; no complications
--- NOTE | 2021-11-15 08:48 | PC.NURSE ---
patient ambulatory back from restroom with help of assistance; no complications
--- NOTE | 2021-11-15 08:56 | PC.NURSE ---
ED MD at
[2021-11-15 09:02] VITALS: BP 143/88; PULSE 81; O2SAT 99
[2021-11-15 09:12] VITALS: BP 143/88; PULSE 77; O2SAT 98
[2021-11-15 09:26] VITALS: BP 143/88; PULSE 81; RESP 18; TEMP 36.4; O2SAT 99
== END 2021-11-15 09:27 | disposition home or self-care (01) ==
PROVIDERS: Emergency Provider Emergency Medicine; PCP Emergency Medicine
DX: L01.00 Impetigo, unspecified (principal); S60.941A Unspecified superficial injury of left index finger, initial encounter; S61.200A Unspecified open wound of right index finger without damage to nail, initial encounter; R21 Rash and other nonspecific skin eruption; I10 Essential (primary) hypertension; I25.119 Atherosclerotic heart disease of native coronary artery with unspecified angina pectoris; E78.5 Hyperlipidemia, unspecified; F32.A Depression, unspecified; F17.210 Nicotine dependence, cigarettes, uncomplicated; Z79.02 Long term (current) use of antithrombotics/antiplatelets; Z79.51 Long term (current) use of inhaled steroids; Z79.899 Other long term (current) drug therapy; Z96.641 Presence of right artificial hip joint; Z88.5 Allergy status to narcotic agent; Z88.6 Allergy status to analgesic agent; Z88.8 Allergy status to other drugs, medicaments and biological substances; Z82.49 Family history of ischemic heart disease and other diseases of the circulatory system; Z80.9 Family history of malignant neoplasm, unspecified; Z83.438 Family history of other disorder of lipoprotein metabolism and other lipidemia
CPT/HCPCS: 99283

== ENCOUNTER → 2021-12-20 10:58 | Outpatient (CLI) | payer BC, SELFPAY ==
[2021-12-20 13:30] LABS: Basophils # 0.2 K/mm3 (0-0.2); Basophils % 1.9 % (0.1-2.0); Eosinophils # 0.3 K/mm3 (0.0-0.4); Eosinophils % 3.7 % (0.1-12.0); Hematocrit 38.9 % (37.0-47.0); Lymphocytes # 1.7 K/mm3 (0.7-4.5); Lymphocytes % 21.8 % (10-50); Mean Corpuscular HGB Conc 33.5 g/dL (31.8-35.4); Mean Corpuscular Hemoglobin 31.9 pg (27.0-31.2); Mean Corpuscular Volume 95.2 fl (81-99); Mean Platelet Volume 8.6 fl (7.4-10.4); Monocytes # 0.5 K/mm3 (0.1-1.0); Neutrophils % 65.6 % (37.0-80.0); Platelet Count 314 K/mm3 (142-424); Red Blood Count 4.08 M/mm3 (4.20-5.40); Red Cell Distribution Width 13.9 % (11.5-17.5); White Blood Count 7.6 K/mm3 (4.8-10.8)
[2021-12-20 13:33] LABS: Chloride 103 mmol/L (98-107); Potassium 4.3 mmoL/L (3.5-5.1); Sodium 138 mmol/L (136-145)
[2021-12-20 13:35] LABS: Alanine Aminotransferase 62 U/L (12-78); Aspartate Amino Transferase 79 U/L (14-36); Bilirubin,Total 0.7 mg/dl (0.2-1.3); Blood Urea Nitrogen 19 mg/dl (7-17); Estimated Glomerular Filt Rate 101 ml/min (>60); GFR (African American) 123 ML/MIN (>60)
[2021-12-20 13:36] LABS: Albumin Level 4.9 g/dl (3.5-5.0); Alkaline Phosphatase 87 U/L (38-126); Anion Gap 15.3 mEq/L (5-15); Calcium 10.2 mg/dl (8.4-10.2); Carbon Dioxide 24 mmol/L (22.0-30.0); Globulin 2.5 g/dL (1.3-3.2); Glucose 124 mg/dl (74-100); Total Protein,Serum 7.4 g/dl (6.3-8.2)
[2021-12-20 13:53] LABS: Erythrocyte Sedimentation Rate 29 mm/hr (0-30)
== END ==
LOC: LAB 01-04 10:58 → LAB.DROPOF 01-04 11:05
PROVIDERS: PCP Emergency Medicine; Visit Provider Emergency Medicine
DX: M89.9 Disorder of bone, unspecified (principal); L98.9 Disorder of the skin and subcutaneous tissue, unspecified; B95.7 Other staphylococcus as the cause of diseases classified elsewhere
CPT/HCPCS: 80053; 85025; 85651; 87070; 87077; 87186; 87205

== ENCOUNTER → 2022-01-12 06:12 | Outpatient (CLI) | payer BC, SELFPAY ==
[2022-01-11 18:47] LABS: Amphetamine/Metha Screen,Urine Positive ng/ml (<1000)
[2022-01-11 18:48] LABS: Barbiturates Screen,Urine Negative ng/ml (<200)
[2022-01-11 18:49] LABS: Benzodiazepines Screen,Urine Positive ng/ml (<200); Cocaine Screen,Urine Negative ng/ml (<300)
[2022-01-11 18:50] LABS: Methadone Screen,Urine Negative ng/ml (<300)
[2022-01-11 18:51] LABS: Cannabinoid Screen,Urine Positive ng/ml (<50); Opiate Screen,Urine Negative ng/ml (<300)
[2022-01-11 18:52] LABS: Phencyclidine Screen,Urine Negative ng/ml (<25)
== END ==
PROVIDERS: PCP Emergency Medicine; Visit Provider Emergency Medicine
DX: M54.50 Low back pain, unspecified (principal)
CPT/HCPCS: 80305

== ENCOUNTER → 2022-03-14 08:32 | Outpatient (CLI) | payer BC, SELFPAY ==
[2022-03-14 14:26] LABS: Amphetamine/Metha Screen,Urine Negative ng/ml (<1000); Benzodiazepines Screen,Urine Negative ng/ml (<200)
[2022-03-14 14:27] LABS: Cocaine Screen,Urine Negative ng/ml (<300); Methadone Screen,Urine Negative ng/ml (<300)
[2022-03-14 14:28] LABS: Cannabinoid Screen,Urine Negative ng/ml (<50)
[2022-03-14 14:29] LABS: Opiate Screen,Urine Negative ng/ml (<300); Phencyclidine Screen,Urine Negative ng/ml (<25)
[2022-03-14 14:48] LABS: Barbiturates Screen,Urine Negative ng/ml (<200)
== END ==
PROVIDERS: PCP Emergency Medicine; Visit Provider Emergency Medicine
DX: Z79.899 Other long term (current) drug therapy (principal)
CPT/HCPCS: 80305

== ENCOUNTER → 2022-04-12 14:45 | Outpatient (CLI) | payer BC, SELFPAY ==
[2022-04-12 19:40] LABS: Amphetamine/Metha Screen,Urine Negative ng/ml (<1000)
[2022-04-12 19:58] LABS: Barbiturates Screen,Urine Negative ng/ml (<200)
[2022-04-12 19:59] LABS: Benzodiazepines Screen,Urine Negative ng/ml (<200); Cannabinoid Screen,Urine Negative ng/ml (<50)
[2022-04-12 20:00] LABS: Cocaine Screen,Urine Negative ng/ml (<300)
[2022-04-12 20:01] LABS: Methadone Screen,Urine Negative ng/ml (<300); Opiate Screen,Urine Negative ng/ml (<300)
[2022-04-12 20:02] LABS: Phencyclidine Screen,Urine Negative ng/ml (<25)
== END ==
PROVIDERS: PCP Emergency Medicine; Visit Provider Emergency Medicine
DX: M41.52 Other secondary scoliosis, cervical region (principal); M54.2 Cervicalgia
CPT/HCPCS: 80305

== ENCOUNTER → 2022-08-29 15:47 | Outpatient (CLI) | payer BC, SELFPAY ==
[2022-08-29 16:05] LABS: Amphetamine/Metha Screen,Urine Negative ng/ml (<1000); Methadone Screen,Urine Negative ng/ml (<300)
[2022-08-29 16:06] LABS: Barbiturates Screen,Urine Negative ng/ml (<200)
[2022-08-29 16:07] LABS: Benzodiazepines Screen,Urine Negative ng/ml (<200)
[2022-08-29 16:08] LABS: Cannabinoid Screen,Urine Negative ng/ml (<50); Cocaine Screen,Urine Negative ng/ml (<300)
[2022-08-29 16:09] LABS: Opiate Screen,Urine Negative ng/ml (<300)
[2022-08-29 16:10] LABS: Phencyclidine Screen,Urine Negative ng/ml (<25)
== END ==
PROVIDERS: PCP Emergency Medicine; Visit Provider Emergency Medicine
DX: Z79.899 Other long term (current) drug therapy (principal)
CPT/HCPCS: 80305

== ENCOUNTER → 2022-09-22 22:41 | Outpatient (CLI) | payer BC, SELFPAY | PROVIDERS: PCP Emergency Medicine; Visit Provider Emergency Medicine | DX: F41.9 Anxiety disorder, unspecified (principal) ==

== ENCOUNTER 2022-10-31 17:56 | Emergency (ER) | payer BC, SELFPAY ==
[2022-10-31 18:18] VITALS: BP 133/92; PULSE 112; RESP 18; O2SAT 98; BMI 21.9
--- NOTE | 2022-10-31 19:32 | PC.NURSE ---
shift change report given to wanda beltre
[2022-10-31 19:37] VITALS: BP 0/0; PULSE 0; RESP 0; TEMP -17.7; TEMP 0; O2SAT 0
== END 2022-10-31 19:41 | disposition left against medical advice (07) ==
PROVIDERS: Emergency Provider Emergency Medicine; PCP Emergency Medicine
DX: Z53.21 Procedure and treatment not carried out due to patient leaving prior to being seen by health care provider (principal)
CPT/HCPCS: 99211

== ENCOUNTER → 2023-03-16 23:43 | Outpatient (CLI) | payer BC, SELFPAY ==
[2023-03-16 18:32] LABS: Basophils % 0.6 % (0.1-2.0); Eosinophils # 0.1 K/mm3 (0.0-0.4); Eosinophils % 2.2 % (0.1-12.0); Hemoglobin 13.3 g/dL (12.2-16.2); Lymphocytes # 2.1 K/mm3 (0.7-4.5); Mean Corpuscular HGB Conc 32.5 g/dL (31.8-35.4); Mean Corpuscular Hemoglobin 29.4 pg (27.0-31.2); Mean Corpuscular Volume 90.6 fl (81-99); Mean Platelet Volume 9.3 fl (7.4-10.4); Monocytes # 0.5 K/mm3 (0.1-1.0); Monocytes % 7.7 % (1.7-9.3); Neutrophils % 52.4 % (37.0-80.0); Platelet Count 324 K/mm3 (142-424); Red Blood Count 4.53 M/mm3 (4.20-5.40); Red Cell Distribution Width 14.5 % (11.5-17.5); White Blood Count 5.8 K/mm3 (4.8-10.8)
[2023-03-16 19:47] LABS: Erythrocyte Sedimentation Rate 15 mm/hr (0-30)
[2023-03-16 19:57] LABS: Alanine Aminotransferase 20 U/L (12-78); Albumin Level 4.8 g/dl (3.5-5.0); Albumin/Globulin Ratio 1.6 (1.1-1.8); Alkaline Phosphatase 97 U/L (38-126); Anion Gap 15.9 mEq/L (5-15); Aspartate Amino Transferase 32 U/L (14-36); Bilirubin,Total 0.6 mg/dl (0.2-1.3); Blood Urea Nitrogen 8 mg/dl (7-17); Calcium 10.1 mg/dl (8.4-10.2); Carbon Dioxide 23 mmol/L (22.0-30.0); Chloride 102 mmol/L (98-107); Estimated Glomerular Filt Rate 85 ml/min (>60); GFR (African American) 102 ML/MIN (>60); Glucose 110 mg/dl (74-100); Potassium 3.9 mmoL/L (3.5-5.1); Sodium 137 mmol/L (136-145); Total Protein,Serum 7.8 g/dl (6.3-8.2)
[2023-03-16 20:04] LABS: C-Reactive Protein 0.5 mg/L (0-4)
== END ==
PROVIDERS: PCP Emergency Medicine; Visit Provider Emergency Medicine
DX: B82.9 Intestinal parasitism, unspecified (principal); Z79.899 Other long term (current) drug therapy
CPT/HCPCS: 80053; 85025; 85651; 86140; 87177

== ENCOUNTER → 2023-04-24 23:30 | Outpatient (CLI) | payer BC, SELFPAY | PROVIDERS: PCP Emergency Medicine; Visit Provider Emergency Medicine | DX: M50.30 Other cervical disc degeneration, unspecified cervical region (principal) ==

== ENCOUNTER → 2023-06-26 12:01 | Outpatient (CLI) | payer BC, SELFPAY ==
[2023-06-26 12:05] LABS: Barbiturates Screen,Urine Negative ng/ml (<200); Cannabinoid Screen,Urine Positive ng/ml (<50)
[2023-06-26 12:06] LABS: Benzodiazepines Screen,Urine Positive ng/ml (<200)
[2023-06-26 12:07] LABS: Cocaine Screen,Urine Negative ng/ml (<300); Methadone Screen,Urine Negative ng/ml (<300)
[2023-06-26 12:08] LABS: Opiate Screen,Urine Negative ng/ml (<300)
[2023-06-26 12:09] LABS: Phencyclidine Screen,Urine Negative ng/ml (<25)
[2023-07-01 12:08] LABS: Amphetamine Positive (.); Amphetamine (GC/MS) 1143 ng/mL (Cutoff=500); Amphetamines Positive (.); Methamphetamine Positive (.); Methamphetamine (GC/MS) >3000 ng/mL (Cutoff=500)
== END ==
PROVIDERS: PCP Internal Medicine; Visit Provider Internal Medicine
DX: M51.16 Intervertebral disc disorders with radiculopathy, lumbar region (principal); Z79.899 Other long term (current) drug therapy
CPT/HCPCS: 80305; 80324

== ENCOUNTER 2024-05-09 19:50 | Emergency (ER) | payer BC, SELFPAY ==
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
[2024-05-09 19:54] VITALS: BP 167/83; PULSE 68; RESP 20; TEMP 37; O2SAT 100; BMI 27.4
[2024-05-09 21:00] VITALS: BP 101/72; PULSE 61; O2SAT 97
--- NOTE | 2024-05-09 21:07 | PC.NURSE ---
staff at [facility]
[2024-05-09] MEDS: ONDANSETRON 4MG/2ML VIAL 4 MG IV (21:43)
[2024-05-09] MEDS: HYDROMORPHONE 2MG/ML SYRINGE 1 MG IV ×3 (21:46→22:59)
[2024-05-09 21:54] LABS: Alanine Aminotransferase 19 U/L (12-78); Albumin Level 4.2 g/dl (3.5-5.0); Albumin/Globulin Ratio 1.5 (1.1-1.8); Alkaline Phosphatase 77 U/L (38-126); Anion Gap 9.2 mEq/L (5-15); Aspartate Amino Transferase 35 U/L (14-36); Basophils # 0.1 K/mm3 (0-0.2); Basophils % 0.9 % (0.1-2.0); Bilirubin,Total 0.6 mg/dl (0.2-1.3); Blood Urea Nitrogen 14 mg/dl (7-17); Carbon Dioxide 28 mmol/L (22.0-30.0); Chloride 101 mmol/L (98-107); Creatinine Clearance Estimated 65 mL/min (50-200); Eosinophils # 0.1 K/mm3 (0.0-0.4); Eosinophils % 2.1 % (0.1-12.0); Estimated Glomerular Filt Rate 84 ml/min (>60); GFR (African American) 102 ML/MIN (>60); Globulin 2.8 g/dL (1.3-3.2); Glucose 106 mg/dl (74-100); Hematocrit 34.6 % (37.0-47.0); Hemoglobin 13.3 g/dL (12.2-16.2); Lymphocytes # 1.1 K/mm3 (0.7-4.5); Lymphocytes % 16.1 % (10-50); Mean Corpuscular HGB Conc 38.3 g/dL (31.8-35.4); Mean Corpuscular Volume 88.8 fl (81-99); Mean Platelet Volume 8.2 fl (7.4-10.4); Monocytes # 0.5 K/mm3 (0.1-1.0); Monocytes % 7.9 % (1.7-9.3); Neutrophils # 4.9 K/mm3 (1.8-7.8); Neutrophils % 73.1 % (37.0-80.0); Platelet Count 176 K/mm3 (142-424); Potassium 4.2 mmoL/L (3.5-5.1); Red Cell Distribution Width 14.5 % (11.5-17.5); Sodium 134 mmol/L (136-145); White Blood Count 6.7 K/mm3 (4.8-10.8)
[2024-05-09 22:01] LABS: Activated Partial Thrombo Time 26.8 seconds (22.8-30.6); INR 0.92 (0.9-1.1); Prothrombin Time 10.4 seconds (10.1-12.5)
--- NOTE | 2024-05-09 22:10 | PC.NURSE ---
Place a short posterior slab splint on patients R leg leg and elevated for comfort. Patients PMS was intact prior to the splint and post splinting.
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
[2024-05-09] MEDS: MORPHINE 4MG/ML SYRINGE 4 MG IV (23:46)
[2024-05-10 00:29] VITALS: BP 104/64; PULSE 66; RESP 18; TEMP 36.8; O2SAT 92
== END 2024-05-10 00:31 | disposition short-term general hospital (02) ==
PROVIDERS: Emergency Provider Emergency Medicine; PCP Family Medicine
DX: S82.201A Unspecified fracture of shaft of right tibia, initial encounter for closed fracture (principal); M79.671 Pain in right foot; M25.571 Pain in right ankle and joints of right foot; V29.39XA Other motorcycle (driver) (passenger) injured in unspecified nontraffic accident, initial encounter; Y93.89 Activity, other specified; Y92.007 Garden or yard of unspecified non-institutional (private) residence as the place of occurrence of the external cause
CPT/HCPCS: 70450; 72125; 73562; 73590; 73610; 73630; 80053; 85025; 85610; 85730; 96374; 96375; 99284; J1171; J2270; J2405